=== PATIENT | female | born 1985 | race Caucasian/White ===

== ENCOUNTER 2017-11-25 10:04 | Emergency (ER) | payer OTHER, SELFPAY ==
[2017-11-25 10:13] VITALS: BP 157/94; PULSE 68; RESP 15; TEMP 36.7; O2SAT 100; BMI 22.3
--- NOTE | 2017-11-25 10:13 | ED.CHESTPAIN ---
HPI - Chest Pain General Chief Complaint: Arrhythmia/Palpitations Stated Complaint: SVT Time Seen by Provider: 11/25/17 10:12 Source: patient Mode of arrival: ambulatory Limitations: no limitations History of Present Illness HPI narrative: 32-year-old nonsmoker with history of SVT presents with a chief complaint of palpitations dizziness and chest pain for the past few days. She states she has had a episodes of rapid heart rate over the past few days which go away without any medications or specific therapies. She denies any change in her life such as new medications, additional stressors, or illness involving fever, chills nor nausea or vomiting. She is otherwise well and free of complaint. Her chest pain goes away with resolution of palpitations and tachycardia MD complaint: chest pain Onset (ago): day(s) Duration: intermittent Pain location: substernal Severity: mild Quality: tightness Exacerbating factors: nothing Treatments prior to arrival chest pain: none Related Data Home Medications Medication Instructions Recorded Confirmed No Known Home Medications 11/25/17 11/25/17 Allergies Allergy/AdvReac Type Severity Reaction Status Date / Time hydrocodone Allergy Severe Difficulty Verified 11/25/17 10:57 Breathing Review of Systems Review of Systems All systems reviewed & are unremarkable except as noted in HPI and below Constitutional Denies chills, Denies fever(s), Denies lethargy and Denies weakness Eyes Denies change in vision, Denies eye discharge, Denies irritation and Denies loss of vision ENT Ears, Nose, Mouth, and Throat: Denies change in voice, Denies neck pain and Denies sore throat Cardiovascular Reports chest pain, Reports rapid heart rate, Reports irregular heart rhythm, Denies lightheadedness, Reports palpitations, Reports dyspnea, Denies dyspnea on exertion and Denies orthopnea Respiratory Denies cough, Reports dyspnea, Denies dyspnea on exertion and Denies wheezing Gastrointestinal Gastrointestinal: Denies abdominal pain, Denies change in bowel habits, Denies diarrhea, Denies nausea and Denies vomiting Genitourinary Denies hematuria, Denies flank pain, Denies urinary incontinence and Denies urinary urgency Musculoskeletal Denies neck pain Integumentary/Breasts Denies pruritus, Denies erythema, Denies rash and Denies wounds Neurologic Denies confusion, Denies loss of vision and Denies weakness Psychiatric Denies anxiety, Denies confusion, Denies depression, Denies homicidal ideation and Denies suicidal ideation Endocrine Reports palpitations Hematologic/Lymphatic Denies easy bruising Allergic/Immunologic Denies wheezing [facility] Medical History SVT (supraventricular tachycardia) (Acute) Exam Initial Vital Signs Initial Vital Signs: Vital Signs Temperature 98.0 F 11/25/17 10:13 Pulse Rate 68 11/25/17 10:13 Respiratory Rate 15 11/25/17 10:13 Blood Pressure 157/94 H 11/25/17 10:13 Pulse Oximetry 100 11/25/17 10:13 Const General: cooperative and well developed Nutritional Appearance: well nourished Orientation: alert, awake, oriented x3 and not confused HENMT Head: normocephalic and atraumatic Ears: external ears normal and TM's normal bilaterally Nose: external nose normal and No nasal discharge Face and sinus: sinuses nontender, face symmetric, no sinus tenderness and No dry mucous membranes Mouth: oral mucosae normal and moist mucous membranes Teeth and gingiva: dentition normal Throat: tonsils normal and uvula midline Eyes General: appearance normal, both eyes and all related structures Eyelids: eyelids normal Conjunctivae: conjunctivae normal Sclera: sclerae normal Pupils: PERRL EOM: EOM intact bilaterally Neck Neck: normal visual inspection, trachea midline, No lymphadenopathy, No midline deformity and No JVD Lymphatic: No lymphedema Chest Chest: normal inspection of the chest Resp Effort & Inspection: normal respiratory effort, able to speak in complete sentences, no respiratory distress and no use of accessory muscles Auscultation: clear to auscultation bilaterally, no rales, no rhonchi and no wheezes Cardio Rate: regular rate Rhythm: regular rhythm Heart Sounds: no click, no gallops, no murmurs and no rubs Pulses: normal peripheral pulses GI Inspection: non-distended Palpation: soft, no hepatosplenomegaly, No guarding, No pulsatile mass and No tender Auscultation: normal bowel sounds Back/Spine/Pelvis Back: No CVA tenderness Cervical Spine: cervical ROM normal and No pain with cervical ROM Thoracic/Lumbar Spine: thoracic and lumbar spine normal to inspection Skin General: no rashes or lesions noted, No jaundice and No petechiae Neuro General: alert, oriented x3, gait normal and no focal motor deficits Speech: speech normal Extrem General: full ROM, no clubbing, cyanosis or edema, no pedal edema and no calf tenderness Psych Appearance: well kempt Mental Status: mental status grossly normal Attitude: cooperative Thought Content: normal and suicidality Judgment: judgment good Course Orders Ordered: ED Orders 11/25/17 10:22 XR chest 1V Stat Basic Metabolic Panel Stat Complete Blood Count AUTO DIFF Stat Magnesium Stat Troponin & CK Cardiac Panel Stat EKG-12 Lead Stat Discontinued Medications Sodium Chloride (Normal Saline 0.9%) 1,000 mls @ 150 mls/hr IV CONT TERESA Last Infusion: 11/25/17 12:13 Dose: 0 mls/hr Admin: 11/25/17 11:23 Dose: 150 mls/hr Vital Signs - 8 hr 11/25/17 11:27 11/25/17 11:43 Pulse Rate 58 L 49 L Respiratory Rate 14 14 Blood Pressure [Left Arm] 125/78 132/74 Pulse Oximetry 100 100 MDM - Chest Pain Differential Diagnosis Likely stable angina, unstable angina pectoris, atypical chest pain, st elevation myocardial infarction, costochondritis, chest pain and other Medical Records Data Attestation: I reviewed the patient's medical records. Lab Data Attestation: I reviewed the patient's lab results. Result diagrams: 11/25/17 10:22 11/25/17 10:22 Lab Results 11/25/17 11/25/17 11/25/17 Range/Units 10:22 10:22 Unknown WBC 5.8 (4.5-11.0) X10^3/uL RBC 4.69 (4.0-5.2) X10^6/uL Hgb 13.7 (12.0-16.0) g/dL Hct 39.0 (36-46) % MCV 83.1 (80-100) fL MCH 29.2 (26-34) PG MCHC 35.2 (30-36) % RDW 13.0 (11.6-14.8) % Plt Count 233 (150-400) X10^3/uL Neut % (Auto) 65.1 (50-75) % Lymph % (Auto) 26.3 (25-40) % [place] % (Auto) 6.8 (3-14) % Eos % (Auto) 1.0 L (2-4) % Baso % (Auto) 0.8 (0-2) % Neut # (Auto) 3800 (9835-8949) /uL Sodium 143 (137-145) mmol/L Potassium 3.9 (3.4-5.1) mmol/L Chloride 106 (98-107) mmol/L Carbon Dioxide 24 (22-32) mmol/L BUN 16 (7-17) mg/dL Creatinine 0.70 (0.52-1.04) mg/dL Estimated GFR > 60.0 (>60) mL/min BUN/Creatinine Ratio 22.9 H (6-22) Glucose 91 (70-100) mg/dL Calcium 9.5 (8.4-10.2) mg/dL Magnesium 2.2 (1.6-2.3) mg/dL Total Creatine Kinase 56 (30-135) U/L Troponin I < 0.012 (0.01-0.034) ng/mL TSH 1.85 (0.47-4.68) uIU/mL ECG Data Attestation: I personally reviewed and interpreted this ECG as follows: Prior ECG tracings: not available for review Interpretation: Normal sinus rhythm without signs of ectopy, ischemia. No ST segmental changes. Rate in the upper 50s low 60s Discharge Plan Departure Patient Disposition: Home Clinical Impression: Palpitations Discharge Date/Time: 11/25/17 12:16 Interventions: ED Discharge Assessment Last Done: 11/25/17 12:14 Instructions: DI for Palpitations Activity Restrictions/Additional Instructions: *You have been diagnosed with [ acute palpitations, possible resolution of SVT ] *What to do: * continue to take medications as directed *Follow up with your primary care provider in 2-3 days, call for an appointment. Let them know you were seen in the Emergency Department and that we ask that you be seen in follow up *Return to ER if you should have any new, worsening or concerning symptoms Prescriptions: No Action No Known Home Medications RF: 0
--- NOTE | 2017-11-25 10:22 | DI.RAD.S_ITS ---
PROCEDURE: XR CHEST 1V INDICATIONS: SHORTNESS OF BREATH TECHNIQUE: One view of the chest was acquired. COMPARISON: None. FINDINGS: Surgical changes and devices: None. Lungs and pleura: No pleural effusions or pneumothorax. Lungs are clear. Mediastinum: Mediastinal contours appear normal. Heart size is normal. Bones and chest wall: No suspicious bony lesions. Overlying soft tissues appear unremarkable. IMPRESSION: No acute cardiopulmonary disease process. Dictated by: Anya Jackson MD, PhD on 11/25/2017 at 10:37 Approved by: Anya Jackson MD, PhD on 11/25/2017 at 10:37
--- NOTE | 2017-11-25 10:24 | PC.NURSE ---
Patient states couple episodes of SVT yesterday. Resolved with Vagel maneuver. Max heart rate 190 per patient. Has had history of SVT in past was on sotalol in past. Not on meds currently
[2017-11-25 10:53] LABS: BUN Creatinine Ratio 22.9 (6-22); Blood Urea Nitrogen 16 mg/dL (7-17); Calcium 9.5 mg/dL (8.4-10.2); Carbon Dioxide 24 mmol/L (22-32); Chloride 106 mmol/L (98-107); Creatine Kinase 56 U/L (30-135); Estimated Glomerular Filt Rate > 60.0 mL/min (>60); Glucose 91 mg/dL (70-100); HEMOLYSIS 17 (0-50); Magnesium 2.2 mg/dL (1.6-2.3); Potassium 3.9 mmol/L (3.4-5.1); Sodium 143 mmol/L (137-145)
[2017-11-25 11:00] LABS: Add Manual Diff / Slide Review NO; Basophils Percent Auto 0.8 % (0-2); Hemoglobin 13.7 g/dL (12.0-16.0); Lymphocytes Percent Auto 26.3 % (25-40); Mean Corpuscular HGB Conc 35.2 % (30-36); Mean Corpuscular Hemoglobin 29.2 PG (26-34); Mean Corpuscular Volume 83.1 fL (80-100); Monocytes Percent Auto 6.8 % (3-14); Neutrophils Absolute Auto 3800 /uL (3000-5900); Neutrophils Percent Auto 65.1 % (50-75); Platelet Count 233 X10^3/uL (150-400); Red Blood Cell Count 4.69 X10^6/uL (4.0-5.2); White Blood Cell Count 5.8 X10^3/uL (4.5-11.0)
[2017-11-25 11:06] LABS: Troponin I < 0.012 ng/mL (0.01-0.034)
[2017-11-25] MEDS: SODIUM CHLORIDE 0.9% 1,000 ML 150 ML IV (11:23)
[2017-11-25 11:27] VITALS: BP 125/78; PULSE 58; RESP 14; O2SAT 100
[2017-11-25 11:43] VITALS: BP 132/74; PULSE 49; RESP 14; O2SAT 100
[2017-11-25 11:48] LABS: Thyroid Stimulating Hormone 1.85 uIU/mL (0.47-4.68)
== END 2017-11-25 12:16 | disposition home or self-care (01) ==
PROVIDERS: Emergency Provider Emergency Medicine
DX: R00.2 Palpitations (principal)
CPT/HCPCS: 36591; 71045; 80048; 82550; 82553; 83735; 84443; 84484; 85025; 93005; 96360; 99283; 99285

== ENCOUNTER 2017-12-05 22:14 | Emergency (ER) | payer OTHER, SELFPAY ==
[2017-12-05 22:27] VITALS: BP 137/66; PULSE 94; RESP 16; TEMP 36.6; O2SAT 100; BMI 22.3
--- NOTE | 2017-12-05 22:31 | DI.RAD.S_ITS ---
PROCEDURE: XR CHEST 1V INDICATIONS: chest pain TECHNIQUE: One view of the chest was acquired. COMPARISON: [facility], CR, XR CHEST 1V, 11/25/2017, 10:26. FINDINGS: Surgical changes and devices: None. Lungs and pleura: No pleural effusions or pneumothorax. Lungs are clear. Mediastinum: Mediastinal contours appear normal. Heart size is normal. Bones and chest wall: No suspicious bony lesions. Overlying soft tissues appear unremarkable. IMPRESSION: No acute cardiopulmonary disease. Dictated by: Marcelo Colon M.D. on 12/06/2017 at 8:22 Approved by: Marcelo Colon M.D. on 12/06/2017 at 8:22
[2017-12-05 22:40] LABS: Add Manual Diff / Slide Review NO; Eosinophils Percent Auto 1.8 % (2-4); Hematocrit 38.6 % (36-46); Hemoglobin 13.6 g/dL (12.0-16.0); Mean Corpuscular HGB Conc 35.2 % (30-36); Mean Corpuscular Volume 82.6 fL (80-100); Monocytes Percent Auto 7.5 % (3-14); Neutrophils Absolute Auto 5700 /uL (3000-5900); Neutrophils Percent Auto 69.7 % (50-75); Platelet Count 228 X10^3/uL (150-400); Red Blood Cell Count 4.67 X10^6/uL (4.0-5.2); Red Cell Distribution Width 12.7 % (11.6-14.8); White Blood Cell Count 8.2 X10^3/uL (4.5-11.0)
[2017-12-05 22:49] LABS: PTT Partial Thromboplastin Tim 32 SECONDS (26.4-36.2); Prothrombin Time 11.3 SECONDS (10.1-12.7)
[2017-12-05 22:52] LABS: Alanine Aminotransferase 20 IU/L (9-52); Albumin 4.9 g/dL (3.5-5.0); Albumin Globulin Ratio 1.8 (1.0-2.8); Alkaline Phosphatase 43 U/L (38-126); Aspartate Aminotransferase 18 IU/L (14-36); BUN Creatinine Ratio 27.5 (6-22); Bilirubin Total 0.5 mg/dL (0.2-1.3); Blood Urea Nitrogen 22 mg/dL (7-17); Calcium 9.8 mg/dL (8.4-10.2); Carbon Dioxide 25 mmol/L (22-32); Chloride 105 mmol/L (98-107); Creatine Kinase 59 U/L (30-135); Estimated Glomerular Filt Rate > 60.0 mL/min (>60); Globulin 2.8 g/dL (1.7-4.1); Glucose 115 mg/dL (70-100); HEMOLYSIS < 15 (0-50); Lipase 131 U/L (23-300); Potassium 3.5 mmol/L (3.4-5.1); Sodium 144 mmol/L (137-145); Total Protein 7.7 g/dL (6.3-8.2)
[2017-12-05 23:06] LABS: Troponin I < 0.012 ng/mL (0.01-0.034)
--- NOTE | 2017-12-05 23:09 | ED.ARRPALP ---
HPI - Arrhythmia/Palpitations General Chief Complaint: Arrhythmia/Palpitations Stated Complaint: Low Heart Rate Time Seen by Provider: 12/05/17 22:49 Source: patient Mode of arrival: ambulatory Limitations: no limitations History of Present Illness HPI narrative: This is a 32-year-old female comes to the emergency department with complaint of SVT. Patient states she was diagnosed about 10 years ago. She has had symptoms intermittently. She takes sotalol but only as a as needed medication not every day. patient had symptoms this evening for about 2 hr with elevated heart rate. She felt sort of short of breath and has chest pain. She felt nauseated but no vomiting. Patient's heart rate on arrival was very slightly elevated and with time improved. Patient has not had any diarrhea or constipation, no signs of dehydration. We discussed that she should continue her medications but if she is having severe symptoms like she described to come in sooner to the emergency department. Related Data Home Medications Medication Instructions Recorded Confirmed No Known Home Medications 11/25/17 11/25/17 Allergies Allergy/AdvReac Type Severity Reaction Status Date / Time hydrocodone Allergy Severe Difficulty Verified 11/25/17 10:57 Breathing Review of Systems Review of Systems All systems reviewed & are unremarkable except as noted in HPI and below PFS Social History Smoking Status: Never smoker Exam Narrative Exam Narrative: GENERAL: Alert and oriented x three, Patient is in mild distress. HEENT: Head normocephalic, atraumatic, EOMI, pupils reactive, face symmetric, moist mucous membranes NECK: Supple, full range of motion CARDIOVASCULAR: Regular rate and rhythm without murmurs, rubs or gallops. RESPIRATORY: Breath sounds equal bilaterally, no wheezes rales or rhonchi. ABDOMEN: Soft, nontender. Normoactive bowel sounds all 4 quadrants. No guarding or rebound, rigidity, no mass : No CVA tenderness EXTREMITIES: Normal range of motion, no clubbing or edema. Neurovascularly intact. 2+ pulses bilateral lower extremities. No edema bilateral lower extremities. NEUROLOGICAL: Cranial nerves II through XII grossly intact. Moving all extremities SKIN: Warm, dry, no petechiae, no rashes or lesions. Initial Vital Signs Initial Vital Signs: Vital Signs Temperature 98 F 12/05/17 22:27 Pulse Rate 94 H 12/05/17 22:27 Respiratory Rate 16 09/27/18 22:27 Blood Pressure 137/66 12/05/17 22:27 Pulse Oximetry 100 12/05/17 22:27 Course Orders Ordered: ED Orders 12/05/17 22:28 Complete Blood Count AUTO DIFF Stat Comprehensive Metabolic Panel Stat Lipase Stat Magnesium Stat Partial Thromboplastin Time Stat Prothrombin Time INR Stat Thyroid Stimulating Hormone Stat Troponin & CK Cardiac Panel Stat 12/05/17 22:31 XR chest 1V Stat 12/05/17 22:32 EKG-12 Lead Stat Discontinued Medications Sodium Chloride (Normal Saline 0.9%) 1,000 mls @ 1,000 mls/hr IV BOLUS ONE Stop: 12/06/17 00:06 Last Infusion: 12/06/17 00:41 Dose: 0 mls/hr Admin: 12/05/17 23:10 Dose: 1,000 mls/hr Ondansetron HCl (Zofran) 4 mg IV NOW ONE Stop: 12/05/17 23:08 Last Admin: 12/05/17 23:10 Dose: 4 mg Reevaluation(s) Reevaluation #1: recheck after fluids and zofran Time: 00:31 Vital Signs - 8 hr 12/05/17 22:27 12/05/17 23:16 12/06/17 00:46 Temperature 98 F Pulse Rate 94 H 53 L 75 Respiratory Rate 16 19 Blood Pressure 137/66 Blood Pressure [Left Arm] 115/55 L 105/94 H Pulse Oximetry 100 98 100 MDM - Arrhythmia/Palpitations Lab Data Result diagrams: 12/05/17 22:28 12/05/17 22:28 Lab Results 12/05/17 12/05/17 12/05/17 Range/Units 22:28 22:28 22:28 WBC 8.2 (4.5-11.0) X10^3/uL RBC 4.67 (4.0-5.2) X10^6/uL Hgb 13.6 (12.0-16.0) g/dL Hct 38.6 (36-46) % MCV 82.6 (80-100) fL MCH 29.0 (26-34) PG MCHC 35.2 (30-36) % RDW 12.7 (11.6-14.8) % Plt Count 228 (150-400) X10^3/uL Neut % (Auto) 69.7 (50-75) % Lymph % (Auto) 20.0 L (25-40) % [place] % (Auto) 7.5 (3-14) % Eos % (Auto) 1.8 L (2-4) % Baso % (Auto) 1.0 (0-2) % Neut # (Auto) 5700 (1084-0649) /uL PT 11.3 (10.1-12.7) SECONDS INR 1.0 (0.9-1.3) APTT 32 (26.4-36.2) SECONDS Sodium 144 (137-145) mmol/L Potassium 3.5 (3.4-5.1) mmol/L Chloride 105 (98-107) mmol/L Carbon Dioxide 25 (22-32) mmol/L BUN 22 H (7-17) mg/dL Creatinine 0.80 (0.52-1.04) mg/dL Estimated GFR > 60.0 (>60) mL/min BUN/Creatinine Ratio 27.5 H (6-22) Glucose 115 H (70-100) mg/dL Calcium 9.8 (8.4-10.2) mg/dL Magnesium (1.6-2.3) mg/dL Total Bilirubin 0.5 (0.2-1.3) mg/dL AST 18 (14-36) IU/L ALT 20 (9-52) IU/L Alkaline Phosphatase 43 (38-126) U/L Total Creatine Kinase 59 (30-135) U/L CK-MB (CK-2) TNP CK-MB (CK-2) Rel Index TNP Troponin I < 0.012 (0.01-0.034) ng/mL Total Protein 7.7 (6.3-8.2) g/dL Albumin 4.9 (3.5-5.0) g/dL Globulin 2.8 (1.7-4.1) g/dL Albumin/Globulin Ratio 1.8 (1.0-2.8) Lipase 131 (23-300) U/L TSH (0.47-4.68) uIU/mL Specimen Hemolysis 12/05/17 12/05/17 Range/Units 22:28 22:28 WBC (4.5-11.0) X10^3/uL RBC (4.0-5.2) X10^6/uL Hgb (12.0-16.0) g/dL Hct (36-46) % MCV (80-100) fL MCH (26-34) PG MCHC (30-36) % RDW (11.6-14.8) % Plt Count (150-400) X10^3/uL Neut % (Auto) (50-75) % Lymph % (Auto) (25-40) % [place] % (Auto) (3-14) % Eos % (Auto) (2-4) % Baso % (Auto) (0-2) % Neut # (Auto) (5057-9032) /uL PT (10.1-12.7) SECONDS INR (0.9-1.3) APTT (26.4-36.2) SECONDS Sodium Cancelled (137-145) mmol/L Potassium Cancelled (3.4-5.1) mmol/L Chloride Cancelled (98-107) mmol/L Carbon Dioxide Cancelled (22-32) mmol/L BUN Cancelled (7-17) mg/dL Creatinine Cancelled (0.52-1.04) mg/dL Estimated GFR Cancelled (>60) mL/min BUN/Creatinine Ratio Cancelled (6-22) Glucose Cancelled (70-100) mg/dL Calcium Cancelled (8.4-10.2) mg/dL Magnesium 2.1 (1.6-2.3) mg/dL Total Bilirubin Cancelled (0.2-1.3) mg/dL AST Cancelled (14-36) IU/L ALT Cancelled (9-52) IU/L Alkaline Phosphatase Cancelled (38-126) U/L Total Creatine Kinase Cancelled (30-135) U/L CK-MB (CK-2) Cancelled CK-MB (CK-2) Rel Index Cancelled Troponin I Cancelled (0.01-0.034) ng/mL Total Protein Cancelled (6.3-8.2) g/dL Albumin Cancelled (3.5-5.0) g/dL Globulin Cancelled (1.7-4.1) g/dL Albumin/Globulin Ratio Cancelled (1.0-2.8) Lipase Cancelled (23-300) U/L TSH 3.55 D (0.47-4.68) uIU/mL Specimen Hemolysis Cancelled Discharge Plan Departure Patient Disposition: Home Clinical Impression: Palpitations, Hx of supraventricular tachycardia Discharge Date/Time: 12/06/17 00:51 Interventions: ED Discharge Assessment Last Done: 12/06/17 00:51 Instructions: Paroxysmal Supraventricular Tachycardia Activity Restrictions/Additional Instructions: Call tomorrow morning to set up a follow-up appointment with Dr. García from Cardiology if you do not already have one scheduled. Continue sotalol as prescribed. If recurrence of symptoms and does not resolve after 20 minutes or you are having Lightheadedness, shortness of breath, chest pain or worsening or new concerning symptoms return to the emergency department. Prescriptions: No Action No Known Home Medications RF: 0 Referrals: Vero García MD [Physician] - Jamey Damon [Non-Staff] -
[2017-12-05] MEDS: ONDANSETRON 4 MG/2 ML INJ IV (23:10)
[2017-12-05] MEDS: SODIUM CHLORIDE 0.9% 1,000 ML 1000 ML IV (23:10)
[2017-12-05 23:16] VITALS: BP 115/55; PULSE 53; RESP 19; O2SAT 98
[2017-12-05 23:39] LABS: Magnesium 2.1 mg/dL (1.6-2.3)
[2017-12-06 00:15] LABS: Thyroid Stimulating Hormone 3.55 uIU/mL (0.47-4.68)
[2017-12-06 00:46] VITALS: BP 105/94; PULSE 75; O2SAT 100
== END 2017-12-06 00:51 | disposition home or self-care (01) ==
PROVIDERS: Emergency Provider Emergency Medicine
DX: R00.2 Palpitations (principal); Z86.79 Personal history of other diseases of the circulatory system
CPT/HCPCS: 36591; 71045; 80053; 82550; 83690; 83735; 84443; 84484; 85025; 85610; 85730; 93005; 96361; 96374; 99283; 99285; J2405

== ENCOUNTER 2018-08-18 11:02 | Emergency (ER) | payer OTHER, SELFPAY ==
[2018-08-18] VITALS (8 sets, daily range): BP systolic 107–126; BP diastolic 63–80; PULSE 61–98; RESP 16–18; TEMP 37.2; O2SAT 98–100; BMI 22.3
--- NOTE | 2018-08-18 11:09 | ED.NAVMDI ---
HPI - Nausea/Vomiting/Diarrhea <Carol Medina PA-C - Last Filed: 08/18/18 20:46> General Chief complaint: Abdominal Pain Stated complaint: Food poisoning Time Seen by Provider: 08/18/18 11:08 Source: patient Mode of arrival: ambulatory Limitations: no limitations History of Present Illness HPI Narrative: This 33-year-old female comes in due to concern for ?food poisoning?. She states that she has been vomiting consistently since 9:00 p.m. last night, probably about every 1/2 hours, now orangish/brown liquid. She states that she has not kept down any food or fluids since then. She denies diarrhea. She states that she has some upper abdominal pain which is worse when she is close to throwing up, gets a little bit better afterwards. She ate the same food as her family yesterday and no others were ill, however Saturday she did go to a baseball game and had chicken salad when the others ate something different. She cannot think of any other exposures or different foods. No recent travel. She states that she felt warm and sweaty this morning, no temperature is taken. She has not had any diarrhea. She denies any urinary symptoms or hematuria. She denies any recent illness or other new symptoms. Denies possibility of Related Data Home Medications Medication Instructions Recorded Confirmed diltiazem HCl 120 mg PO DAILY 08/18/18 08/18/18 metoprolol tartrate 25 mg PO DAILY PRN 08/18/18 08/18/18 Previous Rx's Medication Instructions Recorded ondansetron 4 mg PO DAILY PRN #8 tab 08/18/18 Allergies Allergy/AdvReac Type Severity Reaction Status Date / Time hydrocodone Allergy Severe Difficulty Verified 08/18/18 11:06 Breathing Review of Systems <Carol Medina PA-C - Last Filed: 08/18/18 20:46> Review of Systems ROS Unobtainable: All systems reviewed & are unremarkable except as noted in HPI and below PFSH <Carol Medina PA-C - Last Filed: 08/18/18 20:46> Medical History (Updated 08/18/18 @ 15:17 by Carol Medina PA-C) AV node dysfunction (Chronic) Status post tubal ligation (Resolved) Surgical History (Updated 08/18/18 @ 11:26 by Carol Medina PA-C) History of radiofrequency ablation procedure for cardiac arrhythmia (Resolved) Status post (Resolved) Social History Smoking Status: Never smoker Social History Smoking Status: Never smoker Exam <Carol Mdeina PA-C - Last Filed: 08/18/18 20:46> Narrative Exam Narrative: GENERAL APPEARANCE: Patient sitting comfortably, in no distress. HEENT: PERRL, EOMI, no scleral icterus, conjunctivae pink NECK: Supple LUNGS: Clear to auscultation bilaterally. HEART: Rate and rhythm regular, normal S1 and S2, no S3 or S4. ABDOMEN: Soft, nondistended, bowel sounds present x 4 quadrants, no masses palpable, no hepatosplenomegaly. Generalized epigastric tenderness without guarding or rebound, no CVAT EXTREMITIES: No edema, no cyanosis DERMATOLOGIC: No jaundice or exanthem NEUROLOGIC: Alert and oriented with normal speech and coordination Initial Vital Signs Initial Vital Signs: Vital Signs Temperature 99.0 F 08/18/18 11:06 <Karla Simpson DO - Last Filed: 08/19/18 10:11> Initial Vital Signs Initial Vital Signs: Vital Signs Temperature 99.0 F 08/18/18 11:06 Course <Carol Medina PA-C - Last Filed: 08/18/18 20:46> Additional Information: Patient is feeling markedly improved at the time of discharge, has not had any recurrent vomiting, tolerating oral fluids. She agrees to return if any acutely worsening symptoms again or new symptoms such as fever. Orders Ordered: Discontinued Medications Sodium Chloride (Normal Saline 0.9%) 1,000 mls @ 1,000 mls/hr IV BOLUS ONE Stop: 08/18/18 12:10 Last Infusion: 08/18/18 12:24 Dose: 0 mls/hr Admin: 08/18/18 11:31 Dose: 1,000 mls/hr Sodium Chloride (Normal Saline 0.9%) 1,000 mls @ 1,000 mls/hr IV BOLUS ONE Stop: 08/18/18 12:20 Last Infusion: 08/18/18 13:55 Dose: 0 mls/hr Admin: 08/18/18 12:27 Dose: 1,000 mls/hr Ketorolac Tromethamine (Toradol) 30 mg IV NOW ONE Stop: 08/18/18 13:38 Last Admin: 08/18/18 14:10 Dose: 30 mg Ondansetron HCl (Zofran) 4 mg IV NOW ONE Stop: 08/18/18 11:11 Last Admin: 08/18/18 11:31 Dose: 4 mg Pantoprazole Sodium (Protonix) 40 mg IV NOW ONE Stop: 08/18/18 11:18 Last Admin: 08/18/18 11:31 Dose: 40 mg Prochlorperazine (Compazine) 10 mg IV NOW ONE Stop: 08/18/18 13:38 Last Admin: 08/18/18 14:10 Dose: 10 mg Vital Signs - 8 hr 08/18/18 13:15 08/18/18 14:10 08/18/18 14:26 Pulse Rate 80 78 61 Respiratory Rate 16 Blood Pressure 116/78 Blood Pressure [Right Arm] 107/65 109/66 Pulse Oximetry 100 98 08/18/18 15:46 Pulse Rate 70 Respiratory Rate 18 Blood Pressure Blood Pressure [Right Arm] 112/78 Pulse Oximetry 100 <Karla Simpson DO - Last Filed: 08/19/18 10:11> Orders Ordered: Discontinued Medications Sodium Chloride (Normal Saline 0.9%) 1,000 mls @ 1,000 mls/hr IV BOLUS ONE Stop: 08/18/18 12:10 Last Infusion: 08/18/18 12:24 Dose: 0 mls/hr Admin: 08/18/18 11:31 Dose: 1,000 mls/hr Sodium Chloride (Normal Saline 0.9%) 1,000 mls @ 1,000 mls/hr IV BOLUS ONE Stop: 08/18/18 12:20 Last Infusion: 08/18/18 13:55 Dose: 0 mls/hr Admin: 08/18/18 12:27 Dose: 1,000 mls/hr Ketorolac Tromethamine (Toradol) 30 mg IV NOW ONE Stop: 08/18/18 13:38 Last Admin: 08/18/18 14:10 Dose: 30 mg Ondansetron HCl (Zofran) 4 mg IV NOW ONE Stop: 08/18/18 11:11 Last Admin: 08/18/18 11:31 Dose: 4 mg Pantoprazole Sodium (Protonix) 40 mg IV NOW ONE Stop: 08/18/18 11:18 Last Admin: 08/18/18 11:31 Dose: 40 mg Prochlorperazine (Compazine) 10 mg IV NOW ONE Stop: 08/18/18 13:38 Last Admin: 08/18/18 14:10 Dose: 10 mg Vital Signs - 8 hr 08/18/18 13:15 08/18/18 14:10 08/18/18 14:26 Pulse Rate 80 78 61 Respiratory Rate 16 Blood Pressure 116/78 Blood Pressure [Right Arm] 107/65 109/66 Pulse Oximetry 100 98 08/18/18 15:46 Pulse Rate 70 Respiratory Rate 18 Blood Pressure Blood Pressure [Right Arm] 112/78 Pulse Oximetry 100 MDM - Nausea/Vomiting/Diarrhea <Carol Medina PA-C - Last Filed: 08/18/18 20:46> Lab Data Result diagrams: 08/18/18 11:20 08/18/18 11:20 Lab Results 08/18/18 08/18/18 08/18/18 Range/Units 11:20 11:20 11:20 WBC 10.6 (4.5-11.0) X10^3/uL RBC 5.13 (4.0-5.2) X10^6/uL Hgb 14.9 (12.0-16.0) g/dL Hct 42.9 (36-46) % MCV 83.7 (80-100) fL MCH 29.1 (26-34) PG MCHC 34.8 (30-36) % RDW 12.7 (11.6-14.8) % Plt Count 238 (150-400) X10^3/uL Neut % (Auto) 93.8 H (50-75) % Lymph % (Auto) 2.7 L (25-40) % [place] % (Auto) 2.9 L (3-14) % Eos % (Auto) 0.2 L (2-4) % Baso % (Auto) 0.4 (0-2) % Neut # (Auto) 9900 H (2998-4946) /uL Lymph # (Auto) 300 L (8540-2057) /uL [place] # (Auto) 300 (0-900) /uL Eos # (Auto) 0 (0-450) /uL Baso # (Auto) 0 (0-100) /uL PT 12.9 H (10.1-12.7) SECONDS INR 1.1 (0.9-1.3) APTT 31 (26.4-36.2) SECONDS Sodium 139 (137-145) mmol/L Potassium 3.5 (3.4-5.1) mmol/L Chloride 101 (98-107) mmol/L Carbon Dioxide 27 (22-32) mmol/L BUN 20 H (7-17) mg/dL Creatinine 0.70 (0.52-1.04) mg/dL Estimated GFR > 60.0 (>60) mL/min BUN/Creatinine Ratio 28.6 H (6-22) Glucose 117 H (70-100) mg/dL Calcium 9.7 (8.4-10.2) mg/dL Total Bilirubin 1.4 H (0.2-1.3) mg/dL AST 21 (14-36) IU/L ALT 21 (9-52) IU/L Alkaline Phosphatase 68 (38-126) U/L Total Protein 8.7 H (6.3-8.2) g/dL Albumin 5.1 H (3.5-5.0) g/dL Globulin 3.6 (1.7-4.1) g/dL Albumin/Globulin Ratio 1.4 (1.0-2.8) Lipase 96 (23-300) U/L Urine RBC (0-5/HPF) Urine WBC (0-5/HPF) Ur Squamous Epith Cells (0-5/HPF) Urine Bacteria (None) Ur Culture Indicated? 08/18/18 Range/Units 14:25 WBC (4.5-11.0) X10^3/uL RBC (4.0-5.2) X10^6/uL Hgb (12.0-16.0) g/dL Hct (36-46) % MCV (80-100) fL MCH (26-34) PG MCHC (30-36) % RDW (11.6-14.8) % Plt Count (150-400) X10^3/uL Neut % (Auto) (50-75) % Lymph % (Auto) (25-40) % [place] % (Auto) (3-14) % Eos % (Auto) (2-4) % Baso % (Auto) (0-2) % Neut # (Auto) (9851-0478) /uL Lymph # (Auto) (9288-0220) /uL [place] # (Auto) (0-900) /uL Eos # (Auto) (0-450) /uL Baso # (Auto) (0-100) /uL PT (10.1-12.7) SECONDS INR (0.9-1.3) APTT (26.4-36.2) SECONDS Sodium (137-145) mmol/L Potassium (3.4-5.1) mmol/L Chloride (98-107) mmol/L Carbon Dioxide (22-32) mmol/L BUN (7-17) mg/dL Creatinine (0.52-1.04) mg/dL Estimated GFR (>60) mL/min BUN/Creatinine Ratio (6-22) Glucose (70-100) mg/dL Calcium (8.4-10.2) mg/dL Total Bilirubin (0.2-1.3) mg/dL AST (14-36) IU/L ALT (9-52) IU/L Alkaline Phosphatase (38-126) U/L Total Protein (6.3-8.2) g/dL Albumin (3.5-5.0) g/dL Globulin (1.7-4.1) g/dL Albumin/Globulin Ratio (1.0-2.8) Lipase (23-300) U/L Urine RBC None seen (0-5/HPF) Urine WBC 5-10/hpf H (0-5/HPF) Ur Squamous Epith Cells 10-30 /hpf H (0-5/HPF) Urine Bacteria None seen (None) Ur Culture Indicated? Cult not indicated Point of Care Testing Test Results Negative Urine Dip Bedside Urine Glucose Negative Bedside Urine Bilirubin + 1 Bedside Urine Ketone +++ 80 Urine Specific [place] 1.015 Bedside Urine Occult Blood - Negative Bedside Urine pH 8.0 Bedside Urine Protein +/- 15 Bedside Urine Urobilinogen +/- 1mg Bedside Urine Nitrite - Negative Bedside Urine Leukocytes ++ 125 Esterase <Karla Simpson DO - Last Filed: 08/19/18 10:11> Lab Data Lab Results 08/18/18 08/18/18 08/18/18 Range/Units 11:20 11:20 11:20 WBC 10.6 (4.5-11.0) X10^3/uL RBC 5.13 (4.0-5.2) X10^6/uL Hgb 14.9 (12.0-16.0) g/dL Hct 42.9 (36-46) % MCV 83.7 (80-100) fL MCH 29.1 (26-34) PG MCHC 34.8 (30-36) % RDW 12.7 (11.6-14.8) % Plt Count 238 (150-400) X10^3/uL Neut % (Auto) 93.8 H (50-75) % Lymph % (Auto) 2.7 L (25-40) % [place] % (Auto) 2.9 L (3-14) % Eos % (Auto) 0.2 L (2-4) % Baso % (Auto) 0.4 (0-2) % Neut # (Auto) 9900 H (1959-3537) /uL Lymph # (Auto) 300 L (8809-5698) /uL [place] # (Auto) 300 (0-900) /uL Eos # (Auto) 0 (0-450) /uL Baso # (Auto) 0 (0-100) /uL PT 12.9 H (10.1-12.7) SECONDS INR 1.1 (0.9-1.3) APTT 31 (26.4-36.2) SECONDS Sodium 139 (137-145) mmol/L Potassium 3.5 (3.4-5.1) mmol/L Chloride 101 (98-107) mmol/L Carbon Dioxide 27 (22-32) mmol/L BUN 20 H (7-17) mg/dL Creatinine 0.70 (0.52-1.04) mg/dL Estimated GFR > 60.0 (>60) mL/min BUN/Creatinine Ratio 28.6 H (6-22) Glucose 117 H (70-100) mg/dL Calcium 9.7 (8.4-10.2) mg/dL Total Bilirubin 1.4 H (0.2-1.3) mg/dL AST 21 (14-36) IU/L ALT 21 (9-52) IU/L Alkaline Phosphatase 68 (38-126) U/L Total Protein 8.7 H (6.3-8.2) g/dL Albumin 5.1 H (3.5-5.0) g/dL Globulin 3.6 (1.7-4.1) g/dL Albumin/Globulin Ratio 1.4 (1.0-2.8) Lipase 96 (23-300) U/L Urine RBC (0-5/HPF) Urine WBC (0-5/HPF) Ur Squamous Epith Cells (0-5/HPF) Urine Bacteria (None) Ur Culture Indicated? 08/18/18 Range/Units 14:25 WBC (4.5-11.0) X10^3/uL RBC (4.0-5.2) X10^6/uL Hgb (12.0-16.0) g/dL Hct (36-46) % MCV (80-100) fL MCH (26-34) PG MCHC (30-36) % RDW (11.6-14.8) % Plt Count (150-400) X10^3/uL Neut % (Auto) (50-75) % Lymph % (Auto) (25-40) % [place] % (Auto) (3-14) % Eos % (Auto) (2-4) % Baso % (Auto) (0-2) % Neut # (Auto) (6619-8568) /uL Lymph # (Auto) (3803-5017) /uL [place] # (Auto) (0-900) /uL Eos # (Auto) (0-450) /uL Baso # (Auto) (0-100) /uL PT (10.1-12.7) SECONDS INR (0.9-1.3) APTT (26.4-36.2) SECONDS Sodium (137-145) mmol/L Potassium (3.4-5.1) mmol/L Chloride (98-107) mmol/L Carbon Dioxide (22-32) mmol/L BUN (7-17) mg/dL Creatinine (0.52-1.04) mg/dL Estimated GFR (>60) mL/min BUN/Creatinine Ratio (6-22) Glucose (70-100) mg/dL Calcium (8.4-10.2) mg/dL Total Bilirubin (0.2-1.3) mg/dL AST (14-36) IU/L ALT (9-52) IU/L Alkaline Phosphatase (38-126) U/L Total Protein (6.3-8.2) g/dL Albumin (3.5-5.0) g/dL Globulin (1.7-4.1) g/dL Albumin/Globulin Ratio (1.0-2.8) Lipase (23-300) U/L Urine RBC None seen (0-5/HPF) Urine WBC 5-10/hpf H (0-5/HPF) Ur Squamous Epith Cells 10-30 /hpf H (0-5/HPF) Urine Bacteria None seen (None) Ur Culture Indicated? Cult not indicated Point of Care Testing Test Results Negative Urine Dip Bedside Urine Glucose Negative Bedside Urine Bilirubin + 1 Bedside Urine Ketone +++ 80 Urine Specific [place] 1.015 Bedside Urine Occult Blood - Negative Bedside Urine pH 8.0 Bedside Urine Protein +/- 15 Bedside Urine Urobilinogen +/- 1mg Bedside Urine Nitrite - Negative Bedside Urine Leukocytes ++ 125 Esterase Discharge Plan Departure Patient Disposition: Home Clinical Impression: Dehydration Gastritis Qualifiers: Gastritis type: unspecified gastritis Chronicity: acute Gastritis bleeding: without bleeding Qualified Code(s): K29.00 - Acute gastritis without bleeding Vomiting Qualifiers: Vomiting type: unspecified Vomiting Intractability: non-intractable Nausea presence: with nausea Qualified Code(s): R11.2 - Nausea with vomiting, unspecified Discharge Date/Time: 08/18/18 15:48 Interventions: ED Discharge Assessment Last Done: 08/18/18 15:47 Instructions: DI for Dehydration -- Adult, DI for Gastritis, DI for Vomiting -- Adult Activity Restrictions/Additional Instructions: I think your prolonged vomiting caused you to become dehydrated today. Since you are feeling better, you can return home to rest. Please continue drinking plenty of clear fluids today. You can try a few saltines, applesauce, or some white rice or banana if you feel hungry later, but try small amounts of food at a time and keep it very bland. Continue these foods tomorrow and you can slowly advance your diet as you feel better. Please follow-up with your PCP if you are not feeling completely better in the next couple of days. You should return to the emergency department as we talked about if you are feeling acutely worse again. I have sent a prescription for nausea medicine in to [facility] for you in [place]. Prescriptions: New ondansetron 4 mg tablet,disintegrating 4 mg PO DAILY PRN (Reason: nausea and vomiting) Qty: 8 RF: 0 No Action diltiazem HCl 120 mg Capsule,Extended Release 24 Hr 120 mg PO DAILY RF: 0 metoprolol tartrate 25 mg Tablet 25 mg PO DAILY PRN (Reason: as directed) RF: 0 Referrals: [email or web address] [Provider Group] <Karla Simpson DO - Last Filed: 08/19/18 10:11> Cosign ED Attending Cosignature Attestation: I was immediately available in the department for consultation. This documentation has been reviewed and I agree with assessment and plan. Supervised by Karla Simpson DO
--- NOTE | 2018-08-18 11:26 | ED_ITS ---
HPI - Nausea/Vomiting/Diarrhea <Carol Medina PA-C - Last Filed: 08/18/18 20:46> General Chief complaint: Abdominal Pain Stated complaint: Food poisoning Time Seen by Provider: 08/18/18 11:08 Source: patient Mode of arrival: ambulatory Limitations: no limitations History of Present Illness HPI Narrative: This 33-year-old female comes in due to concern for ?food poisoning?. She states that she has been vomiting consistently since 9:00 p.m. last night, probably about every 1/2 hours, now orangish/brown liquid. She states that she has not kept down any food or fluids since then. She denies diarrhea. She states that she has some upper abdominal pain which is worse when she is close to throwing up, gets a little bit better afterwards. She ate the same food as her family yesterday and no others were ill, however Saturday she did go to a baseball game and had chicken salad when the others ate something different. She cannot think of any other exposures or different foods. No recent travel. She states that she felt warm and sweaty this morning, no temperature is taken. She has not had any diarrhea. She denies any urinary symptoms or hematuria. She denies any recent illness or other new symptoms. Denies possibility of Related Data Home Medications Medication Instructions Recorded Confirmed diltiazem HCl 120 mg PO DAILY 08/18/18 08/18/18 metoprolol tartrate 25 mg PO DAILY PRN 08/18/18 08/18/18 Previous Rx's Medication Instructions Recorded ondansetron 4 mg PO DAILY PRN #8 tab 08/18/18 Allergies Allergy/AdvReac Type Severity Reaction Status Date / Time hydrocodone Allergy Severe Difficulty Verified 08/18/18 11:06 Breathing Review of Systems <Carol Medina PA-C - Last Filed: 08/18/18 20:46> Review of Systems ROS Unobtainable: All systems reviewed & are unremarkable except as noted in HPI and below PFSH <Carol Medina PA-C - Last Filed: 08/18/18 20:46> Medical History (Updated 08/18/18 @ 15:17 by Carol Medina PA-C) AV node dysfunction (Chronic) Status post tubal ligation (Resolved) Surgical History (Updated 08/18/18 @ 11:26 by Carol Medina PA-C) History of radiofrequency ablation procedure for cardiac arrhythmia (Resolved) Status post (Resolved) Social History Smoking Status: Never smoker Social History Smoking Status: Never smoker Exam <Carol Medina PA-C - Last Filed: 08/18/18 20:46> Narrative Exam Narrative: GENERAL APPEARANCE: Patient sitting comfortably, in no distress. HEENT: PERRL, EOMI, no scleral icterus, conjunctivae pink NECK: Supple LUNGS: Clear to auscultation bilaterally. HEART: Rate and rhythm regular, normal S1 and S2, no S3 or S4. ABDOMEN: Soft, nondistended, bowel sounds present x 4 quadrants, no masses palpable, no hepatosplenomegaly. Generalized epigastric tenderness without guarding or rebound, no CVAT EXTREMITIES: No edema, no cyanosis DERMATOLOGIC: No jaundice or exanthem NEUROLOGIC: Alert and oriented with normal speech and coordination Initial Vital Signs Initial Vital Signs: Vital Signs Temperature 99.0 F 08/18/18 11:06 <Krala Simpson DO - Last Filed: 08/19/18 10:11> Initial Vital Signs Initial Vital Signs: Vital Signs Temperature 99.0 F 08/18/18 11:06 Course <Carol Medina PA-C - Last Filed: 08/18/18 20:46> Additional Information: Patient is feeling markedly improved at the time of discharge, has not had any recurrent vomiting, tolerating oral fluids. She agrees to return if any acutely worsening symptoms again or new symptoms such as fever. Orders Ordered: Discontinued Medications Sodium Chloride (Normal Saline 0.9%) 1,000 mls @ 1,000 mls/hr IV BOLUS ONE Stop: 08/18/18 12:10 Last Infusion: 08/18/18 12:24 Dose: 0 mls/hr Admin: 08/18/18 11:31 Dose: 1,000 mls/hr Sodium Chloride (Normal Saline 0.9%) 1,000 mls @ 1,000 mls/hr IV BOLUS ONE Stop: 08/18/18 12:20 Last Infusion: 08/18/18 13:55 Dose: 0 mls/hr Admin: 08/18/18 12:27 Dose: 1,000 mls/hr Ketorolac Tromethamine (Toradol) 30 mg IV NOW ONE Stop: 08/18/18 13:38 Last Admin: 08/18/18 14:10 Dose: 30 mg Ondansetron HCl (Zofran) 4 mg IV NOW ONE Stop: 08/18/18 11:11 Last Admin: 08/18/18 11:31 Dose: 4 mg Pantoprazole Sodium (Protonix) 40 mg IV NOW ONE Stop: 08/18/18 11:18 Last Admin: 08/18/18 11:31 Dose: 40 mg Prochlorperazine (Compazine) 10 mg IV NOW ONE Stop: 08/18/18 13:38 Last Admin: 08/18/18 14:10 Dose: 10 mg Vital Signs - 8 hr 08/18/18 13:15 08/18/18 14:10 08/18/18 14:26 Pulse Rate 80 78 61 Respiratory Rate 16 Blood Pressure 116/78 Blood Pressure [Right Arm] 107/65 109/66 Pulse Oximetry 100 98 08/18/18 15:46 Pulse Rate 70 Respiratory Rate 18 Blood Pressure Blood Pressure [Right Arm] 112/78 Pulse Oximetry 100 <Karla Simpson DO - Last Filed: 08/19/18 10:11> Orders Ordered: Discontinued Medications Sodium Chloride (Normal Saline 0.9%) 1,000 mls @ 1,000 mls/hr IV BOLUS ONE Stop: 08/18/18 12:10 Last Infusion: 08/18/18 12:24 Dose: 0 mls/hr Admin: 08/18/18 11:31 Dose: 1,000 mls/hr Sodium Chloride (Normal Saline 0.9%) 1,000 mls @ 1,000 mls/hr IV BOLUS ONE Stop: 08/18/18 12:20 Last Infusion: 08/18/18 13:55 Dose: 0 mls/hr Admin: 08/18/18 12:27 Dose: 1,000 mls/hr Ketorolac Tromethamine (Toradol) 30 mg IV NOW ONE Stop: 08/18/18 13:38 Last Admin: 08/18/18 14:10 Dose: 30 mg Ondansetron HCl (Zofran) 4 mg IV NOW ONE Stop: 08/18/18 11:11 Last Admin: 08/18/18 11:31 Dose: 4 mg Pantoprazole Sodium (Protonix) 40 mg IV NOW ONE Stop: 08/18/18 11:18 Last Admin: 08/18/18 11:31 Dose: 40 mg Prochlorperazine (Compazine) 10 mg IV NOW ONE Stop: 08/18/18 13:38 Last Admin: 08/18/18 14:10 Dose: 10 mg Vital Signs - 8 hr 08/18/18 13:15 08/18/18 14:10 08/18/18 14:26 Pulse Rate 80 78 61 Respiratory Rate 16 Blood Pressure 116/78 Blood Pressure [Right Arm] 107/65 109/66 Pulse Oximetry 100 98 08/18/18 15:46 Pulse Rate 70 Respiratory Rate 18 Blood Pressure Blood Pressure [Right Arm] 112/78 Pulse Oximetry 100 MDM - Nausea/Vomiting/Diarrhea <Carol Medina PA-C - Last Filed: 08/18/18 20:46> Lab Data Result diagrams: 08/18/18 11:20 08/18/18 11:20 Lab Results 08/18/18 08/18/18 08/18/18 Range/Units 11:20 11:20 11:20 WBC 10.6 (4.5-11.0) X10^3/uL RBC 5.13 (4.0-5.2) X10^6/uL Hgb 14.9 (12.0-16.0) g/dL Hct 42.9 (36-46) % MCV 83.7 (80-100) fL MCH 29.1 (26-34) PG MCHC 34.8 (30-36) % RDW 12.7 (11.6-14.8) % Plt Count 238 (150-400) X10^3/uL Neut % (Auto) 93.8 H (50-75) % Lymph % (Auto) 2.7 L (25-40) % Lander % (Auto) 2.9 L (3-14) % Eos % (Auto) 0.2 L (2-4) % Baso % (Auto) 0.4 (0-2) % Neut # (Auto) 9900 H (0316-2704) /uL Lymph # (Auto) 300 L (0166-8084) /uL Lander # (Auto) 300 (0-900) /uL Eos # (Auto) 0 (0-450) /uL Baso # (Auto) 0 (0-100) /uL PT 12.9 H (10.1-12.7) SECONDS INR 1.1 (0.9-1.3) APTT 31 (26.4-36.2) SECONDS Sodium 139 (137-145) mmol/L Potassium 3.5 (3.4-5.1) mmol/L Chloride 101 (98-107) mmol/L Carbon Dioxide 27 (22-32) mmol/L BUN 20 H (7-17) mg/dL Creatinine 0.70 (0.52-1.04) mg/dL Estimated GFR > 60.0 (>60) mL/min BUN/Creatinine Ratio 28.6 H (6-22) Glucose 117 H (70-100) mg/dL Calcium 9.7 (8.4-10.2) mg/dL Total Bilirubin 1.4 H (0.2-1.3) mg/dL AST 21 (14-36) IU/L ALT 21 (9-52) IU/L Alkaline Phosphatase 68 (38-126) U/L Total Protein 8.7 H (6.3-8.2) g/dL Albumin 5.1 H (3.5-5.0) g/dL Globulin 3.6 (1.7-4.1) g/dL Albumin/Globulin Ratio 1.4 (1.0-2.8) Lipase 96 (23-300) U/L Urine RBC (0-5/HPF) Urine WBC (0-5/HPF) Ur Squamous Epith Cells (0-5/HPF) Urine Bacteria (None) Ur Culture Indicated? 08/18/18 Range/Units 14:25 WBC (4.5-11.0) X10^3/uL RBC (4.0-5.2) X10^6/uL Hgb (12.0-16.0) g/dL Hct (36-46) % MCV (80-100) fL MCH (26-34) PG MCHC (30-36) % RDW (11.6-14.8) % Plt Count (150-400) X10^3/uL Neut % (Auto) (50-75) % Lymph % (Auto) (25-40) % Lander % (Auto) (3-14) % Eos % (Auto) (2-4) % Baso % (Auto) (0-2) % Neut # (Auto) (7732-2335) /uL Lymph # (Auto) (9872-3353) /uL Lander # (Auto) (0-900) /uL Eos # (Auto) (0-450) /uL Baso # (Auto) (0-100) /uL PT (10.1-12.7) SECONDS INR (0.9-1.3) APTT (26.4-36.2) SECONDS Sodium (137-145) mmol/L Potassium (3.4-5.1) mmol/L Chloride (98-107) mmol/L Carbon Dioxide (22-32) mmol/L BUN (7-17) mg/dL Creatinine (0.52-1.04) mg/dL Estimated GFR (>60) mL/min BUN/Creatinine Ratio (6-22) Glucose (70-100) mg/dL Calcium (8.4-10.2) mg/dL Total Bilirubin (0.2-1.3) mg/dL AST (14-36) IU/L ALT (9-52) IU/L Alkaline Phosphatase (38-126) U/L Total Protein (6.3-8.2) g/dL Albumin (3.5-5.0) g/dL Globulin (1.7-4.1) g/dL Albumin/Globulin Ratio (1.0-2.8) Lipase (23-300) U/L Urine RBC None seen (0-5/HPF) Urine WBC 5-10/hpf H (0-5/HPF) Ur Squamous Epith Cells 10-30 /hpf H (0-5/HPF) Urine Bacteria None seen (None) Ur Culture Indicated? Cult not indicated Point of Care Testing Test Results Negative Urine Dip Bedside Urine Glucose Negative Bedside Urine Bilirubin + 1 Bedside Urine Ketone +++ 80 Urine Specific [place] 1.015 Bedside Urine Occult Blood - Negative Bedside Urine pH 8.0 Bedside Urine Protein +/- 15 Bedside Urine Urobilinogen +/- 1mg Bedside Urine Nitrite - Negative Bedside Urine Leukocytes ++ 125 Esterase <Karla Simpson DO - Last Filed: 08/19/18 10:11> Lab Data Lab Results 08/18/18 08/18/18 08/18/18 Range/Units 11:20 11:20 11:20 WBC 10.6 (4.5-11.0) X10^3/uL RBC 5.13 (4.0-5.2) X10^6/uL Hgb 14.9 (12.0-16.0) g/dL Hct 42.9 (36-46) % MCV 83.7 (80-100) fL MCH 29.1 (26-34) PG MCHC 34.8 (30-36) % RDW 12.7 (11.6-14.8) % Plt Count 238 (150-400) X10^3/uL Neut % (Auto) 93.8 H (50-75) % Lymph % (Auto) 2.7 L (25-40) % Lander % (Auto) 2.9 L (3-14) % Eos % (Auto) 0.2 L (2-4) % Baso % (Auto) 0.4 (0-2) % Neut # (Auto) 9900 H (3471-2581) /uL Lymph # (Auto) 300 L (9132-0292) /uL Lander # (Auto) 300 (0-900) /uL Eos # (Auto) 0 (0-450) /uL Baso # (Auto) 0 (0-100) /uL PT 12.9 H (10.1-12.7) SECONDS INR 1.1 (0.9-1.3) APTT 31 (26.4-36.2) SECONDS Sodium 139 (137-145) mmol/L Potassium 3.5 (3.4-5.1) mmol/L Chloride 101 (98-107) mmol/L Carbon Dioxide 27 (22-32) mmol/L BUN 20 H (7-17) mg/dL Creatinine 0.70 (0.52-1.04) mg/dL Estimated GFR > 60.0 (>60) mL/min BUN/Creatinine Ratio 28.6 H (6-22) Glucose 117 H (70-100) mg/dL Calcium 9.7 (8.4-10.2) mg/dL Total Bilirubin 1.4 H (0.2-1.3) mg/dL AST 21 (14-36) IU/L ALT 21 (9-52) IU/L Alkaline Phosphatase 68 (38-126) U/L Total Protein 8.7 H (6.3-8.2) g/dL Albumin 5.1 H (3.5-5.0) g/dL Globulin 3.6 (1.7-4.1) g/dL Albumin/Globulin Ratio 1.4 (1.0-2.8) Lipase 96 (23-300) U/L Urine RBC (0-5/HPF) Urine WBC (0-5/HPF) Ur Squamous Epith Cells (0-5/HPF) Urine Bacteria (None) Ur Culture Indicated? 08/18/18 Range/Units 14:25 WBC (4.5-11.0) X10^3/uL RBC (4.0-5.2) X10^6/uL Hgb (12.0-16.0) g/dL Hct (36-46) % MCV (80-100) fL MCH (26-34) PG MCHC (30-36) % RDW (11.6-14.8) % Plt Count (150-400) X10^3/uL Neut % (Auto) (50-75) % Lymph % (Auto) (25-40) % Lander % (Auto) (3-14) % Eos % (Auto) (2-4) % Baso % (Auto) (0-2) % Neut # (Auto) (3443-2129) /uL Lymph # (Auto) (4662-5373) /uL Lander # (Auto) (0-900) /uL Eos # (Auto) (0-450) /uL Baso # (Auto) (0-100) /uL PT (10.1-12.7) SECONDS INR (0.9-1.3) APTT (26.4-36.2) SECONDS Sodium (137-145) mmol/L Potassium (3.4-5.1) mmol/L Chloride (98-107) mmol/L Carbon Dioxide (22-32) mmol/L BUN (7-17) mg/dL Creatinine (0.52-1.04) mg/dL Estimated GFR (>60) mL/min BUN/Creatinine Ratio (6-22) Glucose (70-100) mg/dL Calcium (8.4-10.2) mg/dL Total Bilirubin (0.2-1.3) mg/dL AST (14-36) IU/L ALT (9-52) IU/L Alkaline Phosphatase (38-126) U/L Total Protein (6.3-8.2) g/dL Albumin (3.5-5.0) g/dL Globulin (1.7-4.1) g/dL Albumin/Globulin Ratio (1.0-2.8) Lipase (23-300) U/L Urine RBC None seen (0-5/HPF) Urine WBC 5-10/hpf H (0-5/HPF) Ur Squamous Epith Cells 10-30 /hpf H (0-5/HPF) Urine Bacteria None seen (None) Ur Culture Indicated? Cult not indicated Point of Care Testing Test Results Negative Urine Dip Bedside Urine Glucose Negative Bedside Urine Bilirubin + 1 Bedside Urine Ketone +++ 80 Urine Specific [place] 1.015 Bedside Urine Occult Blood - Negative Bedside Urine pH 8.0 Bedside Urine Protein +/- 15 Bedside Urine Urobilinogen +/- 1mg Bedside Urine Nitrite - Negative Bedside Urine Leukocytes ++ 125 Esterase Discharge Plan Departure Patient Disposition: Home Clinical Impression: Dehydration Gastritis Qualifiers: Gastritis type: unspecified gastritis Chronicity: acute Gastritis bleeding: without bleeding Qualified Code(s): K29.00 - Acute gastritis without bleeding Vomiting Qualifiers: Vomiting type: unspecified Vomiting Intractability: non-intractable Nausea presence: with nausea Qualified Code(s): R11.2 - Nausea with vomiting, unspecified Discharge Date/Time: 08/18/18 15:48 Interventions: ED Discharge Assessment Last Done: 08/18/18 15:47 Instructions: DI for Dehydration -- Adult, DI for Gastritis, DI for Vomiting -- Adult Activity Restrictions/Additional Instructions: I think your prolonged vomiting caused you to become dehydrated today. Since you are feeling better, you can return home to rest. Please continue drinking plenty of clear fluids today. You can try a few saltines, applesauce, or some white rice or banana if you feel hungry later, but try small amounts of food at a time and keep it very bland. Continue these foods tomorrow and you can slowly advance your diet as you feel better. Please follow-up with your PCP if you are not feeling completely better in the next couple of days. You should return to the emergency department as we talked about if you are feeling acutely worse again. I have sent a prescription for nausea medicine in to [facility] for you in [place]. Prescriptions: New ondansetron 4 mg tablet,disintegrating 4 mg PO DAILY PRN (Reason: nausea and vomiting) Qty: 8 RF: 0 No Action diltiazem HCl 120 mg Capsule,Extended Release 24 Hr 120 mg PO DAILY RF: 0 metoprolol tartrate 25 mg Tablet 25 mg PO DAILY PRN (Reason: as directed) RF: 0 Referrals: [facility] [Provider Group] <Karla Simpson DO - Last Filed: 08/19/18 10:11> Cosign ED Attending Cosignature Attestation: I was immediately available in the department for consultation. This documentation has been reviewed and I agree with assessment and plan. Supervised by Karla Simpson DO
[2018-08-18] MEDS: SODIUM CHLORIDE 0.9% 1,000 ML 1000 ML IV ×2 (11:31→12:27)
[2018-08-18] MEDS: PANTOPRAZOLE 40 MG VIAL IV (11:31)
[2018-08-18] MEDS: ONDANSETRON 4 MG/2 ML INJ IV (11:31)
[2018-08-18 11:36] LABS: Add Manual Diff / Slide Review NO; Basophils Absolute Auto 0 /uL (0-100); Basophils Percent Auto 0.4 % (0-2); Eosinophils Absolute Auto 0 /uL (0-450); Eosinophils Percent Auto 0.2 % (2-4); Hematocrit 42.9 % (36-46); Hemoglobin 14.9 g/dL (12.0-16.0); Lymphocytes Absolute Auto 300 /uL (1100-4500); Lymphocytes Percent Auto 2.7 % (25-40); Mean Corpuscular HGB Conc 34.8 % (30-36); Mean Corpuscular Hemoglobin 29.1 PG (26-34); Mean Corpuscular Volume 83.7 fL (80-100); Monocytes Absolute Auto 300 /uL (0-900); Monocytes Percent Auto 2.9 % (3-14); Neutrophils Absolute Auto 9900 /uL (1500-7000); Neutrophils Percent Auto 93.8 % (50-75); Platelet Count 238 X10^3/uL (150-400); Red Blood Cell Count 5.13 X10^6/uL (4.0-5.2); Red Cell Distribution Width 12.7 % (11.6-14.8); White Blood Cell Count 10.6 X10^3/uL (4.5-11.0)
[2018-08-18 11:47] LABS: INR 1.1 (0.9-1.3); Prothrombin Time 12.9 SECONDS (10.1-12.7)
[2018-08-18 11:50] LABS: PTT Partial Thromboplastin Tim 31 SECONDS (26.4-36.2)
[2018-08-18 12:02] LABS: Alanine Aminotransferase 21 IU/L (9-52); Albumin 5.1 g/dL (3.5-5.0); Albumin Globulin Ratio 1.4 (1.0-2.8); Alkaline Phosphatase 68 U/L (38-126); Aspartate Aminotransferase 21 IU/L (14-36); BUN Creatinine Ratio 28.6 (6-22); Bilirubin Total 1.4 mg/dL (0.2-1.3); Blood Urea Nitrogen 20 mg/dL (7-17); Calcium 9.7 mg/dL (8.4-10.2); Carbon Dioxide 27 mmol/L (22-32); Chloride 101 mmol/L (98-107); Estimated Glomerular Filt Rate > 60.0 mL/min (>60); Globulin 3.6 g/dL (1.7-4.1); Glucose 117 mg/dL (70-100); HEMOLYSIS < 15 (0-50); Lipase 96 U/L (23-300); Potassium 3.5 mmol/L (3.4-5.1); Sodium 139 mmol/L (137-145); Total Protein 8.7 g/dL (6.3-8.2)
--- NOTE | 2018-08-18 13:25 | PC.NURSE ---
Pt requested for urine sample but unable to provided at this time. Pt had 2 liters of IVF infusion
[2018-08-18] MEDS: PROCHLORPERAZINE 10 MG/2 ML VIAL IV (14:10)
[2018-08-18] MEDS: KETOROLAC 60 MG/2 ML VIAL 30 MG IV (14:10)
--- NOTE | 2018-08-18 14:27 | PC.NURSE ---
Pt reports dizziness improved during ambulation to bathroom but having recurring nausea. medicated pt with compazine in slow IVP mixed with NS and toradol for pain.
[2018-08-18 14:35] LABS: Bacteria Urine None Seen; RBC Urine None Seen (0-5/HPF)
[2018-08-18 14:47] LABS: WBC Urine 5-10/HPF (0-5/HPF)
[2018-08-18 14:48] LABS: Culture Indicated Urine Cult Not Indicated; Squamous Epithelial Cell Urine 10-30 /HPF (0-5/HPF)
--- NOTE | 2018-08-18 14:54 | PC.NURSE ---
Pt ambulated to 3 in stable gaits and taking ice chips for PO challenge.
== END 2018-08-18 15:48 | disposition home or self-care (01) ==
PROVIDERS: Emergency Provider Internal Medicine
DX: E86.0 Dehydration (principal); K29.00 Acute gastritis without bleeding; R11.2 Nausea with vomiting, unspecified
CPT/HCPCS: 36591; 80053; 81003; 81015; 81025; 83690; 85025; 85610; 85730; 96361; 96374; 96375; 99284; C9113; J0780; J1885; J2405

== ENCOUNTER 2018-11-10 17:52 | Observation (INO) | payer OTHER, SELFPAY ==
[2018-11-10] VITALS (11 sets, daily range): BP systolic 108–162; BP diastolic 48–75; PULSE 39–67; RESP 8–26; TEMP 36.5–36.7; O2SAT 88–99; BMI 21.4
--- NOTE | 2018-11-10 | PATH_ITS ---
[facility] Accession Number: [id number] . 01 Material submitted: . gallbladder - GALLBLADDER . 01 Clinical history: . CHEST AND UPPER ABD PAIN . 02 Diagnosis: Gallbladder, Laparoscopic Cholecystectomy: Chronic cholecystitis, cholesterolosis, and cholelithiasis. One benign cystic duct lymph node (0). [facility]/11/13/2018 . 02 Electronically signed: . Areli Silva MD, Pathologist NPI- [id number] . 01 Gross description: . Received in formalin, labeled gallbladder, is an intact gallbladder (length-7.4 cm, diameter-3.2 cm) with pale pink smooth shiny serosa and a patent cystic duct. A possible lymph node (0.4 x 0.3 x 0.1) is identified. The lumen contains orange-yellow solid friable calculi (5.5 x 3.5 x 2.2 cm in aggregate). The mucosa is camejo-pink flat and rough. The wall is up to 0.1 cm thick. No nodules, masses or lesions are identified. Section code: (A1) cystic duct resection margin and two serial sections from the body; (A2) two longitudinal sections from the fundus; (A3) one intact lymph node. ([id number]) /MRV . 02 Pathologist provided ICD-10: K81.1, K80.60 . 02 CPT . 441210 Performed at: 01 [facility] [address] [id number] MD Rodger Miller MD Phone: [phone] Performed at: 02 [facility] [address] [place] [id number] MD Isabela Avila MD Phone: [phone]
--- NOTE | 2018-11-10 17:57 | DI.RAD.S_ITS ---
PROCEDURE: XR CHEST 1V INDICATIONS: chest pain TECHNIQUE: One view of the chest was acquired. COMPARISON: [facility], CR, XR CHEST 1V, 12/05/2017, 22:38. [facility], CR, XR CHEST 1V, 11/25/2017, 10:26. FINDINGS: Surgical changes and devices: None. Lungs and pleura: Lungs are clear. No pleural effusions or pneumothorax. Mediastinum: Mediastinal contours appear normal. Heart size is normal. Bones and chest wall: No suspicious bony lesions. Overlying soft tissues appear unremarkable. IMPRESSION: No acute cardiopulmonary disease. Dictated by: Marcelo Colon M.D. on 11/10/2018 at 18:26 Approved by: Marcelo Colon M.D. on 11/10/2018 at 18:27
--- NOTE | 2018-11-10 18:11 | ED.CHESTPAIN ---
HPI - Chest Pain General Chief Complaint: Chest Pain Stated Complaint: Chest and Upper Abd Pain Time Seen by Provider: 11/10/18 18:09 Source: patient and family Mode of arrival: ambulatory Limitations: no limitations History of Present Illness HPI narrative: 33-year-old female nonsmoker with relatively benign medical history presents with her in the chief complaint of severe epigastric pain with radiation to her back that started yesterday. The pain is much worse when she eats or drinks and seems to improve when not eating. She denies any history of the same. She is not dizzy nor weak or lightheaded. She has significantly nauseated and has very little appetite. She last had any oral intake early this morning MD complaint: chest pain Onset (ago): hour(s) Duration: constant Onset: during rest Pain location: substernal and epigastric Severity: moderate Quality: aching Pain radiation: back Relieving factors: nothing Exacerbating factors: eating Associated symptoms: nausea Treatments prior to arrival chest pain: none Related Data Home Medications Medication Instructions Recorded Confirmed diltiazem HCl 120 mg PO DAILY 08/18/18 08/18/18 metoprolol tartrate 25 mg PO DAILY PRN 08/18/18 08/18/18 Previous Rx's Medication Instructions Recorded ondansetron 4 mg PO DAILY PRN #8 tab 08/18/18 Allergies Allergy/AdvReac Type Severity Reaction Status Date / Time hydrocodone Allergy Severe Difficulty Verified 08/18/18 11:06 Breathing Review of Systems Constitutional Constitutional: Denies chills, Denies fatigue, Denies fever(s), Denies frequent falls, Denies lethargy and Denies weakness Eyes Eyes: Denies change in vision, Denies eye discharge, Denies irritation and Denies loss of vision ENT Ears, Nose, Mouth, and Throat: Denies change in voice, Denies dizziness, Denies neck pain, Denies sore throat and Denies throat swelling Cardiovascular Cardiovascular: Reports chest pain, Denies irregular heart rhythm, Denies lightheadedness, Denies palpitations, Denies dyspnea, Denies dyspnea on exertion and Denies orthopnea Respiratory Respiratory: Denies cough, Denies dyspnea, Denies dyspnea on exertion and Denies wheezing Gastrointestinal Gastrointestinal: Reports abdominal pain, Denies change in bowel habits, Denies diarrhea, Reports nausea and Denies vomiting Genitourinary Genitourinary: Denies hematuria, Denies flank pain, Denies urinary incontinence and Denies urinary urgency Musculoskeletal Musculoskeletal: Denies back pain, Denies muscle weakness, Denies neck pain, Denies numbness and Denies tingling Integumentary/Breasts Skin/Breast: Denies pruritus, Denies erythema, Denies rash and Denies wounds Neurologic Neurologic: Denies behavioral changes, Denies confusion, Denies dizziness, Denies frequent falls, Denies loss of vision, Denies numbness, Denies tingling and Denies weakness Psychiatric Psychiatric: Denies anxiety, Denies behavioral changes, Denies confusion, Denies depression, Denies homicidal ideation and Denies suicidal ideation Endocrine Endocrine: Denies fatigue, Denies flushing and Denies palpitations Hematologic/Lymphatic Hematologic/Lymphatic: Denies easy bruising Allergic/Immunologic Allergic/Immunologic: Denies urticaria, Denies throat swelling and Denies wheezing [facility] Medical History AV node dysfunction (Chronic) Status post tubal ligation (Resolved) Surgical History History of radiofrequency ablation procedure for cardiac arrhythmia (Resolved) Status post (Resolved) Social History household members: children Smoking Status: Former smoker Social History household members: children Smoking Status: Former smoker Exam Narrative Exam Narrative: GENERAL: [33] year old patient appears stated age. Well-nourished, well-developed patient, in mild distress. HEAD: Atraumatic. Normocephalic. EYES: Pupils equal round and reactive. Extraocular motions intact. No scleral icterus. No injection or drainage. ENT: Nose without bleeding, purulent drainage. Throat without erythema, tonsillar hypertrophy or exudate. Airway patent. NECK: Trachea midline. Non tender CARDIOVASCULAR: Regular rate and rhythm without murmurs, gallops, or rubs. RESPIRATORY: Clear to auscultation. Breath sounds equal bilaterally. No wheezes, rales, or rhonchi. GASTROINTESTINAL: Abdomen soft, tender in the epigastrium, nondistended. EXTREMITIES: No edema or joint tenderness. BACK: Nontender without deformity or crepitance. No flank tenderness. NEURO: AOx3. SKIN: No rash or erythema of visible areas Initial Vital Signs Initial Vital Signs: Vital Signs Temperature 97.7 F 11/10/18 17:55 Pulse Rate 54 L 11/10/18 17:55 Respiratory Rate 11/10/18 17:55 Blood Pressure 141/71 H 11/10/18 17:55 Pulse Oximetry 99 11/10/18 17:55 Course Orders Ordered: ED Orders 11/10/18 17:57 XR chest 1V Stat EKG-12 Lead Stat 11/10/18 18:10 Complete Blood Count AUTO DIFF Stat Comprehensive Metabolic Panel Stat Lipase Stat Magnesium Stat Partial Thromboplastin Time Stat Prothrombin Time INR Stat Troponin & CK Cardiac Panel Stat 11/10/18 18:58 US abdomen limited Stat 11/10/18 19:05 Urine Microscopic Stat Acetaminophen (Tylenol) 650 mg PO Q4HR PRN PRN Reason: As Needed for Fever/Mild Pain Diltiazem HCl (Cardizem Cd) 120 mg PO DAILY TERESA Fentanyl (Sublimaze) 50 mcg IV Q5MIN PRN PRN Reason: Pain, Moderate (4-6) Last Admin: 11/10/18 23:44 Dose: 50 mcg Documented by: Admin: 11/10/18 23:35 Dose: 50 mcg Documented by: ALEKSANDAR Lactated Ringer's (Lactated Ringers) 1,000 mls @ 42 mls/hr IV CONT TERESA Sodium Chloride (Normal Saline 0.9%) 1,000 mls @ 84 mls/hr IV NOW ONE Stop: 11/11/18 10:44 Last Admin: 11/10/18 22:00 Dose: 84 mls/hr Documented by: AURA Ketorolac Tromethamine (Toradol) 30 mg IV Q6HR [facility] Stop: 11/15/18 23:29 Metoclopramide HCl (Reglan) 10 mg IV NOW PRN PRN Reason: Nausea And Vomiting Metoprolol Tartrate (Lopressor) 25 mg PO DAILY PRN PRN Reason: as directed Ondansetron HCl (Zofran) 4 mg IV NOW PRN PRN Reason: Nausea And Vomiting Ondansetron HCl (Zofran Odt) 4 mg PO DAILY PRN PRN Reason: nausea and vomiting Oxycodone HCl (Percolone) 5 mg PO Q4HR PRN PRN Reason: Pain, Moderate (4-6) Oxycodone/Acetaminophen (Percocet 5/325) 1 tab PO Q30MIN PRN PRN Reason: Mild or moderate pain Discontinued Medications Bupivacaine HCl (Sensorcaine 0.5% (Pf)) 30 ml INJ NOW ONE Stop: 11/10/18 22:53 Last Admin: 11/10/18 22:52 Dose: 10 ml Documented by: RENETTA Mace Hydrox/Mg Hydrox/Simethicone 20 ml/ Lidocaine HCl 15 ml 0 ml PO NOW ONE Stop: 11/10/18 18:59 Last Admin: 11/10/18 19:09 Dose: 35 ml Documented by: SOWMYA Hydromorphone HCl (Dilaudid) 0.5 mg IV NOW ONE Stop: 11/11/18 00:00 Last Admin: 11/11/18 00:07 Dose: Not Given Documented by: AKUNZE Hydromorphone HCl (Dilaudid) 0.5 mg IV NOW ONE Stop: 11/11/18 00:06 Last Admin: 11/11/18 00:06 Dose: 0.5 mg Documented by: ADAMUNZE Hydromorphone HCl (Dilaudid) 0.5 mg IV NOW ONE Stop: 11/11/18 00:16 Cefazolin Sodium/Dextrose (Ancef) 2 gm in 100 mls @ 200 mls/hr IV NOW ONE Stop: 11/10/18 21:26 Piperacillin/Tazobactam/Dextrose (Zosyn) 3.375 gm in 50 mls @ 100 mls/hr IV NOW ONE Stop: 11/10/18 21:37 Last Infusion: 11/10/18 22:21 Dose: 0 mls/hr Documented by: Admin: 11/10/18 22:08 Dose: 100 mls/hr Documented by: AURA Famotidine (Pepcid) 20 mg in 50 mls @ 200 mls/hr IV NOW ONE Stop: 11/11/18 00:13 Last Infusion: 11/11/18 00:53 Dose: 200 mls/hr Documented by: Admin: 11/11/18 00:12 Dose: 200 mls/hr Documented by: ALEKSANDAR Pantoprazole Sodium (Protonix) 40 mg IV NOW ONE Stop: 11/10/18 18:58 Last Admin: 11/10/18 19:09 Dose: 40 mg Documented by: SOWMYA Juarez Consultation #1: Upon receipt of a ultrasound general surgery was contacted who will see the patient at the bedside Vital Signs Vital signs: Vital Signs - 8 hr 11/10/18 17:55 11/10/18 18:30 11/10/18 18:56 Temperature 97.7 F Pulse Rate 54 L 51 L Respiratory Rate 19 16 26 H Blood Pressure 141/71 H Blood Pressure [Right Arm] 110/48 L Pulse Oximetry 99 97 88 L 11/10/18 19:30 11/10/18 20:00 Temperature Pulse Rate 67 51 L Respiratory Rate 14 18 Blood Pressure Blood Pressure [Right Arm] 162/75 H 137/65 Pulse Oximetry 98 96 MDM - Chest Pain Lab Data Result diagrams: 11/10/18 18:10 11/10/18 18:10 Labs: Lab Results 11/10/18 11/10/18 11/10/18 Range/Units 18:10 18:10 18:10 WBC 9.8 (4.5-11.0) X10^3/uL RBC 4.82 (4.0-5.2) X10^6/uL Hgb 14.0 (12.0-16.0) g/dL Hct 40.2 (36-46) % MCV 83.5 (80-100) fL MCH 29.1 (26-34) PG MCHC 34.8 (30-36) % RDW 12.8 (11.6-14.8) % Plt Count 255 (150-400) X10^3/uL Neut % (Auto) 74.4 (50-75) % Lymph % (Auto) 18.5 L (25-40) % [place] % (Auto) 5.1 (3-14) % Eos % (Auto) 1.0 L (2-4) % Baso % (Auto) 1.0 (0-2) % Neut # (Auto) 7300 H (9682-0043) /uL Lymph # (Auto) 1800 (5558-5738) /uL [place] # (Auto) 500 (0-900) /uL Eos # (Auto) 100 (0-450) /uL Baso # (Auto) 100 (0-100) /uL PT 11.2 (10.1-12.7) SECONDS INR 1.0 (0.9-1.3) APTT 33 D (26.4-36.2) SECONDS Sodium 139 (137-145) mmol/L Potassium 3.7 (3.4-5.1) mmol/L Chloride 103 (98-107) mmol/L Carbon Dioxide 26 (22-32) mmol/L BUN 15 (7-17) mg/dL Creatinine 0.60 (0.52-1.04) mg/dL Estimated GFR > 60.0 (>60) mL/min BUN/Creatinine Ratio 25.0 H (6-22) Glucose 98 (70-100) mg/dL Calcium 9.8 (8.4-10.2) mg/dL Magnesium 1.9 (1.6-2.3) mg/dL Total Bilirubin 0.5 (0.2-1.3) mg/dL AST 19 (14-36) IU/L ALT 21 (9-52) IU/L Alkaline Phosphatase 47 (38-126) U/L Total Creatine Kinase 45 (30-135) U/L CK-MB (CK-2) TNP CK-MB (CK-2) Rel Index TNP Troponin I < 0.012 (0.01-0.034) ng/mL Total Protein 7.8 (6.3-8.2) g/dL Albumin 4.8 (3.5-5.0) g/dL Globulin 3.0 (1.7-4.1) g/dL Albumin/Globulin Ratio 1.6 (1.0-2.8) Lipase 176 (23-300) U/L Urine RBC (0-5/HPF) Urine WBC (0-5/HPF) Ur Squamous Epith Cells (0-5/HPF) Amorphous Sediment Urine Bacteria (None) Ur Culture Indicated? 11/10/18 Range/Units 19:05 WBC (4.5-11.0) X10^3/uL RBC (4.0-5.2) X10^6/uL Hgb (12.0-16.0) g/dL Hct (36-46) % MCV (80-100) fL MCH (26-34) PG MCHC (30-36) % RDW (11.6-14.8) % Plt Count (150-400) X10^3/uL Neut % (Auto) (50-75) % Lymph % (Auto) (25-40) % [place] % (Auto) (3-14) % Eos % (Auto) (2-4) % Baso % (Auto) (0-2) % Neut # (Auto) (5611-1787) /uL Lymph # (Auto) (2824-4985) /uL [place] # (Auto) (0-900) /uL Eos # (Auto) (0-450) /uL Baso # (Auto) (0-100) /uL PT (10.1-12.7) SECONDS INR (0.9-1.3) APTT (26.4-36.2) SECONDS Sodium (137-145) mmol/L Potassium (3.4-5.1) mmol/L Chloride (98-107) mmol/L Carbon Dioxide (22-32) mmol/L BUN (7-17) mg/dL Creatinine (0.52-1.04) mg/dL Estimated GFR (>60) mL/min BUN/Creatinine Ratio (6-22) Glucose (70-100) mg/dL Calcium (8.4-10.2) mg/dL Magnesium (1.6-2.3) mg/dL Total Bilirubin (0.2-1.3) mg/dL AST (14-36) IU/L ALT (9-52) IU/L Alkaline Phosphatase (38-126) U/L Total Creatine Kinase (30-135) U/L CK-MB (CK-2) CK-MB (CK-2) Rel Index Troponin I (0.01-0.034) ng/mL Total Protein (6.3-8.2) g/dL Albumin (3.5-5.0) g/dL Globulin (1.7-4.1) g/dL Albumin/Globulin Ratio (1.0-2.8) Lipase (23-300) U/L Urine RBC None seen (0-5/HPF) Urine WBC 5-10/hpf H (0-5/HPF) Ur Squamous Epith Cells 10-30 /hpf H (0-5/HPF) Amorphous Sediment 2+ Urine Bacteria Many (>30) H (None) Ur Culture Indicated? Cult not indicated Urine Dip Bedside Urine Glucose Negative Bedside Urine Bilirubin - Negative Bedside Urine Ketone - Negative Urine Specific [place] 1.020 Bedside Urine Occult Blood +/- Bedside Urine pH 6.5 Bedside Urine Protein - Negative Bedside Urine Urobilinogen - Negative Bedside Urine Nitrite - Negative Bedside Urine Leukocytes +++ 500 Esterase Imaging Data Chest x-ray: Radiologist's impression: [address] [address] XRay Report Signed Patient: Nury Martin [facility]#: [id number] : 1985Acct:[id number] Age/Sex: 33 / FDate of Service: 11/10/18 Loc: ED Accession Number: [id number] Procedure: XR chest 1V Ordering Provider: Wm Gagnon D.O. PROCEDURE: XR CHEST 1V INDICATIONS: chest pain TECHNIQUE: One view of the chest was acquired. COMPARISON: [facility], CR, XR CHEST 1V, 12/05/2017, 22:38. [facility], CR, XR CHEST 1V, 11/25/2017, 10:26. FINDINGS: Surgical changes and devices: None. Lungs and pleura: Lungs are clear. No pleural effusions or pneumothorax. Mediastinum: Mediastinal contours appear normal. Heart size is normal. Bones and chest wall: No suspicious bony lesions. Overlying soft tissues appear unremarkable. IMPRESSION: No acute cardiopulmonary disease. Dictated by: Marcelo Colon M.D. on 11/10/2018 at 18:26 Approved by: Marcelo Colon M.D. on 11/10/2018 at 18:27 US - abdomen: Radiologist's impression: [address] [address] Ultrasound Report Signed Patient: Nury Martin [facility]#: [id number] : 1985Acct:[id number] Age/Sex: 33 / FDate of Service: 11/10/18 Loc: ED Accession Number: [id number] Procedure: US abdomen limited Ordering Provider: José Miguel Renner D.O. PROCEDURE: US ABDOMEN LIMITED INDICATIONS: POST PRANDIAL EPIGASTRIC PAIN TECHNIQUE: Real-time focused scanning was performed of the abdomen, with image documentation. COMPARISON: None. FINDINGS: Gallbladder contains multiple gallstones. A 7 mm stone is lodged in the gallbladder neck. No gallbladder wall thickening or pericholecystic fluid. There is positive sonographic Fountain's sign. Visualized liver is normal. Common bile duct measures 3.1 mm in diameter. Visualized pancreas is normal. IMPRESSION: 1. Cholelithiasis. A 7 mm stone is lodged in the gallbladder neck. There is sonographic Fountain's sign. Recommend clinical correlation for early acute cholecystitis. 2. Normal caliber of common bile duct. Dictated by: Marcelo Colon M.D. on 11/10/2018 at 19:55 Approved by: Marcelo Colon M.D. on 11/10/2018 at 19:57 Discharge Plan Departure Patient Disposition: Admitted As Inpatient Clinical Impression: Cholelithiases Discharge Date/Time: 11/10/18 21:07 Admit Date/Time: 11/10/18 20:13 Admit Provider: Rogesr Lugo
[2018-11-10 18:19] LABS: Add Manual Diff / Slide Review NO; Basophils Absolute Auto 100 /uL (0-100); Eosinophils Absolute Auto 100 /uL (0-450); Hematocrit 40.2 % (36-46); Lymphocytes Absolute Auto 1800 /uL (1100-4500); Lymphocytes Percent Auto 18.5 % (25-40); Mean Corpuscular HGB Conc 34.8 % (30-36); Mean Corpuscular Hemoglobin 29.1 PG (26-34); Mean Corpuscular Volume 83.5 fL (80-100); Monocytes Absolute Auto 500 /uL (0-900); Monocytes Percent Auto 5.1 % (3-14); Neutrophils Absolute Auto 7300 /uL (1500-7000); Neutrophils Percent Auto 74.4 % (50-75); Platelet Count 255 X10^3/uL (150-400); Red Blood Cell Count 4.82 X10^6/uL (4.0-5.2); Red Cell Distribution Width 12.8 % (11.6-14.8); White Blood Cell Count 9.8 X10^3/uL (4.5-11.0)
[2018-11-10 18:26] LABS: Prothrombin Time 11.2 SECONDS (10.1-12.7)
[2018-11-10 18:29] LABS: PTT Partial Thromboplastin Tim 33 SECONDS (26.4-36.2)
[2018-11-10 18:30] LABS: Alanine Aminotransferase 21 IU/L (9-52); Albumin 4.8 g/dL (3.5-5.0); Albumin Globulin Ratio 1.6 (1.0-2.8); Alkaline Phosphatase 47 U/L (38-126); Aspartate Aminotransferase 19 IU/L (14-36); Bilirubin Total 0.5 mg/dL (0.2-1.3); Blood Urea Nitrogen 15 mg/dL (7-17); Calcium 9.8 mg/dL (8.4-10.2); Carbon Dioxide 26 mmol/L (22-32); Chloride 103 mmol/L (98-107); Creatine Kinase 45 U/L (30-135); Estimated Glomerular Filt Rate > 60.0 mL/min (>60); Glucose 98 mg/dL (70-100); HEMOLYSIS < 15 (0-50); Lipase 176 U/L (23-300); Magnesium 1.9 mg/dL (1.6-2.3); Potassium 3.7 mmol/L (3.4-5.1); Sodium 139 mmol/L (137-145); Total Protein 7.8 g/dL (6.3-8.2)
[2018-11-10 18:42] LABS: Troponin I < 0.012 ng/mL (0.01-0.034)
--- NOTE | 2018-11-10 18:58 | DI.US.S_ITS ---
PROCEDURE: US ABDOMEN LIMITED INDICATIONS: POST PRANDIAL EPIGASTRIC PAIN TECHNIQUE: Real-time focused scanning was performed of the abdomen, with image documentation. COMPARISON: None. FINDINGS: Gallbladder contains multiple gallstones. A 7 mm stone is lodged in the gallbladder neck. No gallbladder wall thickening or pericholecystic fluid. There is positive sonographic Fountain's sign. Visualized liver is normal. Common bile duct measures 3.1 mm in diameter. Visualized pancreas is normal. IMPRESSION: 1. Cholelithiasis. A 7 mm stone is lodged in the gallbladder neck. There is sonographic Fountain's sign. Recommend clinical correlation for early acute cholecystitis. 2. Normal caliber of common bile duct. Dictated by: Marcelo Colon M.D. on 11/10/2018 at 19:55 Approved by: Marcelo Colon M.D. on 11/10/2018 at 19:57
[2018-11-10] MEDS: MAG HYDROX/ALUMINUM/SIMETH SUS 20 ML, LIDOCAINE VISCOUS 2% 15 ML PO (19:09)
[2018-11-10] MEDS: PANTOPRAZOLE 40 MG VIAL IV (19:09)
[2018-11-10 19:31] LABS: RBC Urine None Seen (0-5/HPF)
[2018-11-10 19:41] LABS: WBC Urine 5-10/HPF (0-5/HPF)
[2018-11-10 19:42] LABS: Amorphous Sediment Urine 2+; Bacteria Urine Many (>30); Culture Indicated Urine Cult Not Indicated; Squamous Epithelial Cell Urine 10-30 /HPF (0-5/HPF)
--- NOTE | 2018-11-10 20:59 | PM.HP.1 ---
History of Present Illness History of Present Illness Date Patient Seen: 11/10/18 Time Patient Seen: 20:59 Chief complaint: Chest and Upper Abd Pain Narrative: 33-year-old woman with a history of biliary colic presents to the emergency room with 24 hours of constant right upper quadrant pain. she has associated nausea no vomiting pain radiates to her back. Pain is crampy in nature and improved with pain medication. No prior similar episodes previous biliary colic would typically resolve within several hours after eating. Last oral intake was 7:00 a.m. today. Medical history significant for AV dory dysfunction, sp ablation has loop recorder. Previous surgeries include C section and tubal ligation. Patient History Medical History AV node dysfunction (Chronic) Status post tubal ligation (Resolved) Surgical History History of radiofrequency ablation procedure for cardiac arrhythmia (Resolved) Status post (Resolved) Social History Smoking Status: Former smoker Family & Social History Safety & Behavioral: Feels Safe in Current Yes Environment Tobacco & Substance use: Smoking Status Former smoker alcohol intake frequency a few times a month Substance Use Type marijuana Meds Home Medications and Allergies Home Medications Medication Instructions Recorded Confirmed Type diltiazem HCl 120 mg PO DAILY 08/18/18 08/18/18 History metoprolol tartrate 25 mg PO DAILY PRN 08/18/18 08/18/18 History ondansetron 4 mg PO DAILY PRN #8 tab 08/18/18 Rx Allergies Allergy/AdvReac Type Severity Reaction Status Date / Time hydrocodone Allergy Severe Difficulty Verified 08/18/18 11:06 Breathing Review of Systems Review of Systems Narrative: General-no weight loss, fever or chills Head and Neck-no change in voice, no neck swelling Pulmonary-no cough, no shortness of breath at rest, no wheezing Cardiac-no syncope, claudication, palpitations or lower extremity edema Gastrointestinal-no abdominal distention, change in bowel habits, or jaundice Genitourinary-no hematuria or dysuria Hematology-no hypercoagulability, no abnormal bleeding or bruising Neurological-No seizures, new weakness or dizziness Endocrine-no diabetes, no thyroid or adrenal disorders Psychiatric-no anxiety, depression or substance abuse disorder Exam Vital Signs (past 8 hours): - 11/10/18 17:55 11/10/18 18:30 11/10/18 18:56 Temperature 97.7 F Pulse Rate 54 L 51 L Respiratory Rate 19 16 26 H Blood Pressure 141/71 H Blood Pressure [Right Arm] 110/48 L Pulse Oximetry 99 97 88 L 11/10/18 19:30 11/10/18 20:00 Temperature Pulse Rate 67 51 L Respiratory Rate 14 18 Blood Pressure Blood Pressure [Right Arm] 162/75 H 137/65 Pulse Oximetry 98 96 Oxygen Delivery Method Room Air Narrative Exam Narrative: General-adult female no acute distress, well nourished HEENT-moist mucous membranes, no scleral icterus Neck-supple with full range of motion, no lymphadenopathy Chest- no labored respirations, clear to auscultation bilaterally Cardiac-regular rate and rhythm Abdomen- +Fountain's sign, no peritonitis Extremities-no edema, warm well perfused Neurological-alert and oriented x 3. No focal deficits Skin-normal temperature and turgor, no rashes or ulcers Objective Labs Result Diagrams: 11/10/18 18:10 11/10/18 18:10 Labs: Laboratory Results - last 24 hr 11/10/18 11/10/18 11/10/18 18:10 18:10 18:10 WBC 9.8 RBC 4.82 Hgb 14.0 Hct 40.2 MCV 83.5 MCH 29.1 MCHC 34.8 RDW 12.8 Plt Count 255 Neut % (Auto) 74.4 Lymph % (Auto) 18.5 L [place] % (Auto) 5.1 Eos % (Auto) 1.0 L Baso % (Auto) 1.0 Neut # (Auto) 7300 H Lymph # (Auto) 1800 [place] # (Auto) 500 Eos # (Auto) 100 Baso # (Auto) 100 PT 11.2 INR 1.0 APTT 33 D Sodium 139 Potassium 3.7 Chloride 103 Carbon Dioxide 26 BUN 15 Creatinine 0.60 Estimated GFR > 60.0 BUN/Creatinine Ratio 25.0 H Glucose 98 Calcium 9.8 Magnesium 1.9 Total Bilirubin 0.5 AST 19 ALT 21 Alkaline Phosphatase 47 Total Creatine Kinase 45 CK-MB (CK-2) TNP CK-MB (CK-2) Rel Index TNP Troponin I < 0.012 Total Protein 7.8 Albumin 4.8 Globulin 3.0 Albumin/Globulin Ratio 1.6 Lipase 176 Urine RBC Urine WBC Ur Squamous Epith Cells Amorphous Sediment Urine Bacteria Ur Culture Indicated? 11/10/18 19:05 WBC RBC Hgb Hct MCV MCH MCHC RDW Plt Count Neut % (Auto) Lymph % (Auto) [place] % (Auto) Eos % (Auto) Baso % (Auto) Neut # (Auto) Lymph # (Auto) [place] # (Auto) Eos # (Auto) Baso # (Auto) PT INR APTT Sodium Potassium Chloride Carbon Dioxide BUN Creatinine Estimated GFR BUN/Creatinine Ratio Glucose Calcium Magnesium Total Bilirubin AST ALT Alkaline Phosphatase Total Creatine Kinase CK-MB (CK-2) CK-MB (CK-2) Rel Index Troponin I Total Protein Albumin Globulin Albumin/Globulin Ratio Lipase Urine RBC None seen Urine WBC 5-10/hpf H Ur Squamous Epith Cells 10-30 /hpf H Amorphous Sediment 2+ Urine Bacteria Many (>30) H Ur Culture Indicated? Cult not indicated Assessment & Plan Assessment and plan (1) Cholecystitis: Current visit: Yes Status: Acute Assessment & Plan narrative: 33-year-old see female with history of biliary colic and 24 hours of acute right upper quadrant pain, positive Fountain sign and ultrasound confirming a gallstone lodged within the neck of the gallbladder consistent with acute cholecystitis. I reviewed her labs including CBC and BMP which are unremarkable and abdominal ultrasound with demonstrates a gallstone lodged within gallbladder neck. Nontoxic appearing. Plan NPO Zosyn Laparosocopic possible open cholecystectomy now. Discussed risks of the operation including bleeding infection damage to surrounding structures need for conversion to open operation. Questions have been answered and she is in agreement with this plan
[2018-11-10] MEDS: SODIUM CHLORIDE 0.9% 1,000 ML 84 ML IV (22:00)
[2018-11-10] MEDS: PIPERACILLIN-TAZO 3.375 GM/50 ML FROZ.PIGGY IV (22:08)
--- NOTE | 2018-11-10 22:41 | SUR.OPER ---
Supine on padded OR bed, head on pillow, safety belt at thigh, left arm padded and tucked at side. Right arm secured on padded arm oard <90 degrees abduction. Legs uncrossed. Padded footboard in place. Tape over blanket to secure lower legs.
[2018-11-10] MEDS: BUPIVACAINE 0.5% (PF) VIAL 30 ML INJ (22:52)
--- NOTE | 2018-11-10 23:24 | PM.OP.1 ---
Operative Date/Time/Diagnoses Date of procedure: 11/10/18 Time of procedure: 23:24 Pre-op diagnosis: acute cholecystitis Post-op diagnosis: same Procedure & Clinicians Procedure: Laparoscopic cholecystectomy Same procedure as scheduled: Yes Indications: 33-year-old female with a history of biliary colic presents to the emergency room with 24 hours of right upper quadrant pain a positive Fountain sign and an ultrasound that demonstrated a gallstone stuck within the neck of the gallbladder. Her findings were consistent with acute cholecystitis. Following discussion of the risks benefits alternatives surgical intervention she elected undergo a laparoscopic cholecystectomy. Surgeon: Rogers Lugo Click Yes if Unassisted: Yes Anesthesia Type: General Operative Notes Findings: Acute cholecystitis Specimen(s): other (Gallbladder) Estimated Blood Loss (mL): 10 Procedure in detail: The patient was brought to the operating room placed supine on the table. Bilateral lower extremity compression devices were applied. General anesthesia was induced and they were intubated with an endotracheal tube. They received 3.75 g of Zosyn prior to skin incision. A time-out was performed to ensure the correct patient procedure necessary equipment within the operating room. They were then prepped and draped in the usual sterile fashion. Infraumbilical incision was made the umbilical stalk was grasped and elevated and the fascia was sharply incised. The abdomen was entered atraumatically. A 10 mm trocar was then placed into the abdomen. Pneumoperitoneum was established. The laparoscopic camera was inserted into the abdomen inspection was made that demonstrated no evidence of injury upon entry. We then placed our working ports the 1st 5 mm port high in the epigastrium and then 2 in the right upper quadrant. The gallbladder was grasped and retracted over the liver and grasped laterally by the fundus. The triangle of Calot was exposed. The triangle of calot was then skeletonized using hook electrocautery and demonstrated the cystic duct clearly entering the gallbladder the cystic artery and the liver and in the background. With the critical view of safety established the cystic duct was clipped twice proximally and once distally and then sharply divided and the cystic artery was taken in the same fashion. Next the gallbladder was removed from the liver bed using electro cautery. The liver bed was then inspected for hemostasis and this was achieved. The abdomen was irrigated with sterile saline and inspection was made that showed the clips in good position. The specimen was removed using Endo-Catch. The abdomen was desufflated. The the fascia of the umbilicus was closed with 0 Vicryl in a [id number] fashion. Skin incisions were irrigated and closed with 4-0 Monocryl. The wounds were sealed with Dermabond. Patient emerged from general anesthesia was extubated and transferred to the postoperative care unit missed stable condition. The sponge and instrument count at the end of the operation was correct. Complications: none Post-operative Condition: stable Disposition: observation
[2018-11-10] MEDS: fentaNYL 100 MCG/2 ML INJ 50 MCG IV ×2 (23:35→23:44)
--- NOTE | 2018-11-10 23:47 | PC.NURSE ---
2114- Pt arrived to room 228 from ED via bed. A/O x4, mild epigastric pain, mild distention, and mildly tender ABD, denies nausea. 97%RA, LS clear, denies SOB. BP 132/70, HR 47, Hx cardiac ablation Mar, 2018, and cardiac loop recorder placement at same time, at [facility], Tele # [phone] placed with SB-[id number]. RAC SL, zosyn started with NS flush, and at this time OR up to take pt to surgery. NPO from admit to room. Pt urinated just prior to going down to surgery, SBA. Significant other, Cecil in room awaiting pt's return.
--- NOTE | 2018-11-10 23:51 | SUR.PHASEI ---
pt reported mid chest 4/10 burning pain. VS stable.
--- NOTE | 2018-11-10 23:59 | SUR.PHASEI ---
Dr. Dodd notified pt c/o chest pain 06/18, no tele changes. Hr in the 40s. VVO for famotadine 20mg and Dialudid 0.5mg q min prn pain
[2018-11-11] VITALS (13 sets, daily range): BP systolic 104–128; BP diastolic 60–79; PULSE 44–56; RESP 12–19; TEMP 36.2–36.9; O2SAT 91–100
[2018-11-11] MEDS: HYDROMORPHONE 2 MG INJ 0.5 MG IV (00:06)
[2018-11-11] MEDS: FAMOTIDINE 20 MG/50 ML PIGGYBACK 200 MG IV (00:12)
[2018-11-11] MEDS: HYDROMORPHONE 2 MG INJ (00:14)
--- NOTE | 2018-11-11 00:34 | SUR.PHASEI ---
Report called to Kimberly
--- NOTE | 2018-11-11 01:04 | SUR.PHASEI ---
Pt transferred to the floor with tele. VS stable. IV saline locked. Abd wounds cdi x4. Report to [place]. Transfer routine not available. Dr. Lugo notified, vvo for activity as tolerated, diet as tolerated, scds, and saline lock. Dr. Dodd's orders discontinued.
[2018-11-11] MEDS: OXYCODONE IR 5 MG TABLET PO ×3 (01:26→11:08)
[2018-11-11] MEDS: KETOROLAC 30 MG/ML VIAL IV ×3 (05:03→18:48)
[2018-11-11] MEDS: SODIUM CHLORIDE 0.9% FLUSH 10 ML IV ×2 (05:04→22:07)
--- NOTE | 2018-11-11 06:41 | PC.NURSE ---
Addendum entered by Kimberly Wang R.N. 11/11/18 06:47: Patient did refuse SCDs after approximately 1hr use, educated her and S.O. about importance of SCDs and rational, encouraged her to pump ankles and move legs frequently, she verbally understands. Original Note: Patient arrived to room 228 from PACU at 0045, drowsy but oriented x4, S.O. at bedside. VSS, SpO2 >95% on RA. Medicated with Percolone prn and scheduled IV Toradol for abdominal pain, also using ice pack and splinting. Lap incisions well approximated with glue. Ambulated to BR in am, voided 250ml slightly cloudy urine. Tolerating sips water.
--- NOTE | 2018-11-11 07:59 | P.DS_ITS ---
History of Present Illness History of Present Illness Chief complaint: Chest and Upper Abd Pain Narrative: 33-year-old woman with a history of biliary colic presents to the emergency room with 24 hours of constant right upper quadrant pain. she has associated nausea no vomiting pain radiates to her back. Pain is crampy in nature and improved with pain medication. No prior similar episodes previous biliary colic would typically resolve within several hours after eating. Last oral intake was 7:00 a.m. today. Medical history significant for AV dory dysfunction, sp ablation has loop recorder. Previous surgeries include C section and tubal ligation. Discharge Providers Provider Date of admission: 11/10/18 20:13 Discharge Date: 11/11/18 Discharge provider: Rogers Lugo MD Summary Hospital Course Discharge Diagnosis: acute cholecystitis Hospital Course: 33-year-old female presents to the hospital with acute cholecystitis. She underwent a laparoscopic cholecystectomy which was consistent with acute cholecystitis. Postoperatively her course was unremarkable. On hospital day 1 patient is doing well. She is afebrile, pain is well controlled, tolerating a diet. She is ambulatory and stable for discharge at this time. Wounds are clean dry intact. Status at Discharge Cognitive/behavioral status at discharge: oriented Functional status at discharge: independent ambulation Overall status at discharge: patient is back to baseline Time Spent with Patient Time spent: Less than 30 minutes Exam Vital Signs (past 8 hours): - 11/11/18 00:00 11/11/18 00:10 11/11/18 00:20 Temperature Pulse Rate 45 L 49 L 49 L Respiratory Rate 16 12 13 Blood Pressure 126/71 121/79 109/66 Pulse Oximetry 100 100 100 11/11/18 00:35 11/11/18 00:52 11/11/18 01:15 Temperature 97.9 F 97.9 F Pulse Rate 49 L 56 L 54 L Respiratory Rate 19 17 16 Blood Pressure 118/66 128/71 127/70 Pulse Oximetry 99 96 100 11/11/18 01:45 11/11/18 02:45 11/11/18 03:45 Temperature 97.8 F 97.6 F 97.6 F Pulse Rate 53 L 52 L 48 L Respiratory Rate 16 16 15 Blood Pressure 120/76 104/66 104/68 Pulse Oximetry 100 97 97 Oxygen Delivery Method Room Air Oxygen Flow Rate 0 Narrative Exam Narrative: General-adult female no acute distress, well nourished HEENT-moist mucous membranes, no scleral icterus Neck-supple with full range of motion, no lymphadenopathy Chest- no labored respirations, clear to auscultation bilaterally Cardiac-regular rate and rhythm Abdomen-Appropriately tender, incisions clean dry intact. Extremities-no edema, warm well perfused Neurological-alert and oriented x 3. No focal deficits Skin-normal temperature and turgor, no rashes or ulcers Objective Labs Result Diagrams: 11/10/18 18:10 11/10/18 18:10 Labs: Laboratory Results - last 24 hr 11/10/18 11/10/18 11/10/18 18:10 18:10 18:10 WBC 9.8 RBC 4.82 Hgb 14.0 Hct 40.2 MCV 83.5 MCH 29.1 MCHC 34.8 RDW 12.8 Plt Count 255 Neut % (Auto) 74.4 Lymph % (Auto) 18.5 L [place] % (Auto) 5.1 Eos % (Auto) 1.0 L Baso % (Auto) 1.0 Neut # (Auto) 7300 H Lymph # (Auto) 1800 [place] # (Auto) 500 Eos # (Auto) 100 Baso # (Auto) 100 PT 11.2 INR 1.0 APTT 33 D Sodium 139 Potassium 3.7 Chloride 103 Carbon Dioxide 26 BUN 15 Creatinine 0.60 Estimated GFR > 60.0 BUN/Creatinine Ratio 25.0 H Glucose 98 Calcium 9.8 Magnesium 1.9 Total Bilirubin 0.5 AST 19 ALT 21 Alkaline Phosphatase 47 Total Creatine Kinase 45 CK-MB (CK-2) TNP CK-MB (CK-2) Rel Index TNP Troponin I < 0.012 Total Protein 7.8 Albumin 4.8 Globulin 3.0 Albumin/Globulin Ratio 1.6 Lipase 176 Urine RBC Urine WBC Ur Squamous Epith Cells Amorphous Sediment Urine Bacteria Ur Culture Indicated? 11/10/18 19:05 WBC RBC Hgb Hct MCV MCH MCHC RDW Plt Count Neut % (Auto) Lymph % (Auto) [place] % (Auto) Eos % (Auto) Baso % (Auto) Neut # (Auto) Lymph # (Auto) [place] # (Auto) Eos # (Auto) Baso # (Auto) PT INR APTT Sodium Potassium Chloride Carbon Dioxide BUN Creatinine Estimated GFR BUN/Creatinine Ratio Glucose Calcium Magnesium Total Bilirubin AST ALT Alkaline Phosphatase Total Creatine Kinase CK-MB (CK-2) CK-MB (CK-2) Rel Index Troponin I Total Protein Albumin Globulin Albumin/Globulin Ratio Lipase Urine RBC None seen Urine WBC 5-10/hpf H Ur Squamous Epith Cells 10-30 /hpf H Amorphous Sediment 2+ Urine Bacteria Many (>30) H Ur Culture Indicated? Cult not indicated Discharge Plan Discharge Plan Patient Disposition: Home Discharge Med Rec/Prescriptions Prescriptions: New oxycodone 5 mg capsule 5 mg PO Q4-6H PRN (Reason: pain) Qty: 30 RF: 0 acetaminophen [Tylenol] 325 mg capsule 650 mg PO Q6H PRN (Reason: pain, moderate) Qty: 60 RF: 0 Continued diltiazem HCl 120 mg Capsule,Extended Release 24 Hr 120 mg PO DAILY RF: 0 metoprolol tartrate 25 mg Tablet 25 mg PO DAILY PRN (Reason: as directed) RF: 0 ondansetron 4 mg tablet,disintegrating 4 mg PO DAILY PRN (Reason: nausea and vomiting) Qty: 8 RF: 0 Follow up/Referrals: Rogers Lugo MD [Physician] - Provider Discharge Instructions Diet: Low-fat Activity: No driving while on narcotics. No lifting >20 lbs for 4 weeks. Skin/Wound/Dressing Care Report to your healthcare provider any signs of infection, such as:: chills, fever, increased pain, unusual drainage and unusual redness Visit Report/Discharge Packet Instructions: DI for Cholecystectomy Quality VTE Deep Vein Thrombosis/Pulmonary Embolism Present on Admission: No
[2018-11-11] MEDS: ACETAMINOPHEN 325 MG TABLET 650 MG PO ×3 (08:53→22:07)
[2018-11-11] MEDS: ONDANSETRON 4 MG ODT PO (09:39)
[2018-11-11] MEDS: OXYCODONE IR 5 MG TABLET 10 MG PO ×2 (11:38→16:29)
--- NOTE | 2018-11-11 16:03 | CM.DANOTE ---
DCP: assessment: case received, EMR reviewed. Discussed in Team Rounds. A d/c to home setting was noted. GUSTAVO Mathews stated that Dr. Lugo had stated to her the d/c was contingent upon pt showing adaquate pain management and ability to tolerate a diet. She was in process of alerting to pt's increased pain, nausea and overall distress. Noted this afternoon that Dr. Lugo was back and had just checked in again with pt. Conferred with patel CHEN and then met with pt. Introduced self and role. Pt was found lying in bed, looking pale. She is a 33 year old female who admitted last night to care of General Surgeon: Dr. Lugo.' She was taken to surgery for a lap maria de jesus after dx of acute cholecystitis. She has chronic pain at baseline so this has made her recovery time a bit slower per the RN team caring for pt today. Payer: for [facility] PCP: [facility] Pt confirms that Dr. Lugo told her she could go later tonight if she felt ready, otherwise he would check on her tomorrow and would likely d/c then. Pt says she will see how she feels but at this point thinks it might be best to stay overnight. Her mother will be picking her up at d/c. P: home with clinic followup when stable for same.
--- NOTE | 2018-11-11 17:31 | PC.NURSE ---
1630- Pt lying in bed, rates pain 5/10 to ABD, medicated with oxycodone 10mg and tylenol 650mg, effective. Reports doesn't want to go home tonight. Cancelled DC order. ABD with 4 lap sites on to umbilicus, others RUQ, well approximated with dermabond, CDI. 98%RA, LS clear, BT+, denies nausea, PP+ bradycardic, tele- SB 42 @ 1600. BRP to void with SBA. tolerating reg diet. bed alarm mercerizing range controller light in reach.
[2018-11-12] VITALS: BP 117/65; PULSE 40; RESP 16; TEMP 36.7; O2SAT 98
[2018-11-12] MEDS: KETOROLAC 30 MG/ML VIAL IV ×2 (00:19→05:49)
[2018-11-12] MEDS: SODIUM CHLORIDE 0.9% FLUSH 10 ML IV ×2 (00:20→05:50)
[2018-11-12] MEDS: ACETAMINOPHEN 325 MG TABLET 650 MG PO ×3 (01:07→09:39)
[2018-11-12] MEDS: OXYCODONE IR 5 MG TABLET 10 MG PO (05:58)
[2018-11-12 06:07] VITALS: BP 104/52; PULSE 46; RESP 15; TEMP 36.5; O2SAT 98
[2018-11-12 08:00] VITALS: BP 106/60; PULSE 46; RESP 18; TEMP 36.5; O2SAT 98
--- NOTE | 2018-11-12 08:25 | PM.PNPO.1 ---
Subjective Subjective Date Patient Seen: 11/12/18 Time Patient Seen: 08:25 Interval history: No acute overnight events. And pain significantly improved from yesterday. Tolerating regular diet without nausea or vomiting. Ambulatory. Exam Vital Signs (past 8 hours): - 11/12/18 06:07 Temperature 97.7 F Pulse Rate 46 L Respiratory Rate 15 Blood Pressure 104/52 L Pulse Oximetry 98 Oxygen Delivery Method Room Air Oxygen Flow Rate 0 Narrative Exam Narrative: General adult female in no acute distress alert and oriented Chest nonlabored respirations. No audible wheezes Abdomen is soft, appropriately tender, incisions clean dry intact. Objective Labs Result Diagrams: 11/10/18 18:10 11/10/18 18:10 Assessment & Plan Post-op Postoperative Procedures: Procedures Operation Date: 11/10/18 22:35 Actual Procedures Side Surgeon p Laparoscopic Cholecystectomy Not Applicable Rogers Lugo MD Postoperative plan narrative: 33-year-old female postoperative day 2 status post laparoscopic cholecystectomy for acute cholecystitis doing well. pain is better controlled today with oral medication. Stable for discharge home. Discharge instructions provided. Time Spent With Patient Time with patient: less than 15 minutes Quality VTE Deep Vein Thrombosis/Pulmonary Embolism Present on Admission: No
[2018-11-12] MEDS: dilTIAZem CD 120 MG CAP PO (10:17)
--- NOTE | 2018-12-10 14:42 | PC.NURSE ---
late entry: NS stop time 11/11 1099
== END 2018-11-12 11:00 | disposition home or self-care (01) ==
LOC: ED 18:37 → AC 20:29
PROVIDERS: Emergency Medicine; Admitting Provider Surgery; Emergency Provider Emergency Medicine; Visit Provider Surgery
PROC: 0FT44ZZ Resection of Gallbladder, Percutaneous Endoscopic Approach (ICD-10-PCS; CPT 47562; principal; 2018-11-10 22:35)
DX: K80.00 Calculus of gallbladder with acute cholecystitis without obstruction (principal); R07.9 Chest pain, unspecified; R10.9 Unspecified abdominal pain
CPT/HCPCS: 47562; 36415; 36591; 71045; 76705; 80053; 81003; 81015; 82550; 83690; 83735; 84484; 85025; 85610; 85730; 93005; 96365; 96375; 96376; 99220; 99285; G0378; C9113; J1100; J1170; J1885; J2405; J2543; J2704; J3010

== ENCOUNTER 2024-04-22 17:10 | Emergency (ER) | payer OTHER, SELFPAY ==
[2018-11-10 21:11] VITALS: BMI 21.4
[2024-04-22] VITALS (9 sets, daily range): BP systolic 135–166; BP diastolic 76–79; PULSE 44–72; RESP 14–16; TEMP 36.5; O2SAT 99–100; BMI 27.4
--- NOTE | 2024-04-22 18:04 | PC.NURSE ---
Pt sitting back in [facility]. Appears in NAD. Reports feeling nauseated and vertigo at times. Waiting for MD orders.
[2024-04-22 19:50] LABS: Bacteria Urine Few (2-10); RBC Urine None Seen (0-5/HPF); Squamous Epithelial Cell Urine 0-1 /HPF (0-5/HPF); Urine Volume 10mL (spun); WBC Urine 1-5/HPF (0-5/HPF)
--- NOTE | 2024-04-22 20:57 | PC.NURSE ---
Pt requesting tylenol for pain. Dr Lindsay consulted. wants to wait until he sees pt before ordering anything for pain.
[2024-04-22] MEDS: TRAMADOL 50 MG TABLET PO (22:18)
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
[2024-04-23] MEDS: methocarbamoL 500 MG TABLET PO (00:18)
[2024-04-23] MEDS: TRAMADOL 50 MG PREPACK 1 BOTTLE MISC (00:29)
[2024-04-23 00:31] VITALS: BP 134/74; PULSE 51; RESP 16; O2SAT 100
== END 2024-04-23 00:32 | disposition home or self-care (01) ==
PROVIDERS: Emergency Provider Emergency Medicine; PCP Family Medicine
DX: G44.309 Post-traumatic headache, unspecified, not intractable (principal); F07.81 Postconcussional syndrome; M54.2 Cervicalgia; M54.9 Dorsalgia, unspecified; R42 Dizziness and giddiness
CPT/HCPCS: 81003; 81015; 87086; 99283

== ENCOUNTER → 2024-05-21 16:52 | Outpatient (CLI) | payer OTHER, SELFPAY ==
[2018-11-10 21:11] VITALS: BMI 21.4
--- NOTE | 2024-05-21 16:53 | DI.MRI.S_ITS ---
PROCEDURE: MR CERVICAL SPINE WO CON INDICATIONS: Radiculopathy, post concussion syndrome TECHNIQUE: Noncontrast sagittal T1 spin echo and T2 fast spin echo, sagittal STIR, foraminal oblique sagittal T2 fast spin echo, and axial gradient echo or T2 fast spin echo through the cervical spine. COMPARISON: None. FINDINGS: Image quality: Excellent. Alignment and Curvature: There is normal bony alignment. Mild cervical straightening. Bone Marrow: Marrow demonstrates normal overall signal. Spinal Cord: Visualized spinal cord has normal size and signal. No cerebellar tonsillar herniation. Paraspinous Soft Tissues: No paravertebral masses. Prevertebral soft tissues are normal in thickness. C2-C3: No disc bulge, spinal stenosis or foraminal narrowing. C3-C4: No disc bulge, spinal stenosis or foraminal narrowing. C4-C5: Trace disc bulge without spinal stenosis or foraminal narrowing. C5-C6: No disc bulge, spinal stenosis or foraminal narrowing. C6-C7: Mild disc bulge with superimposed posterior central protrusion with possible extruded fragment. It measures 4 mm. There is no compromise of the lateral recesses. Minimal bilateral foraminal narrowing. C7-T1: No disc bulge or spinal stenosis. Minimal bilateral foraminal narrowing. IMPRESSION: Early degenerative changes with protrusion and suspected small extrusion at C6-7 as above. Dictated by: Yuki Villeda M.D. on 05/22/2024 at 16:52 Approved by: Yuki Villeda M.D. on 05/22/2024 at 16:55
--- NOTE | 2024-05-21 16:55 | DI.MRI.S_ITS ---
PROCEDURE: MR HEAD/BRAIN WO CON INDICATIONS: Frequent headaches, post concussion syndrome TECHNIQUE: Noncontrast axial T1 spin echo, axial T2 fast spin echo, sagittal and axial FLAIR, coronal T2 fast spin echo, axial gradient echo, axial diffusion and ADC through the brain. COMPARISON: None. FINDINGS: Image quality: Excellent. CSF Spaces: Basal cisterns are patent. No extra-axial fluid collections. Ventricles are normal in size and shape. Brain: No intracranial masses or hemorrhage. Ceron/white matter interface is normal. Brainstem appears normal. Diffusion-weighted images demonstrate no acute infarct. No chronic ischemic insults. Normal intravascular flow voids are present. Skull and face: Calvarium has normal marrow signal. Orbits appear normal. Sinuses: Sinuses and mastoids are clear. IMPRESSION: 1. No acute intracranial process. Dictated by: Yuki Villeda M.D. on 05/22/2024 at 16:51 Approved by: Yuki Villdea M.D. on 05/22/2024 at 16:52
== END ==
LOC: MRI 16:52
PROVIDERS: PCP Family Medicine; Referring Provider Family Medicine; Visit Provider Family Medicine
DX: M54.10 Radiculopathy, site unspecified (principal); F07.81 Postconcussional syndrome; R51.9 Headache, unspecified; M50.20 Other cervical disc displacement, unspecified cervical region; M50.30 Other cervical disc degeneration, unspecified cervical region
CPT/HCPCS: 70551; 72141

== ENCOUNTER → 2024-11-20 14:20 | Outpatient (CLI) | payer OTHER, SELFPAY ==
[2018-11-10 21:11] VITALS: BMI 21.4
[2024-11-20 15:46] LABS: Add Manual Diff / Slide Review NO; Hematocrit 38.4 % (36-46); Hemoglobin 13.3 g/dL (12.0-16.0); Lymphocytes Absolute Auto 1200 /uL (1100-4500); Mean Corpuscular HGB Conc 34.5 % (30-36); Mean Corpuscular Hemoglobin 28.8 PG (26-34); Mean Corpuscular Volume 83.3 fL (80-100); Platelet Count 211 X10^3/uL (150-400)
[2024-11-20 16:11] LABS: Alanine Aminotransferase 70 IU/L (<35); Albumin 4.8 g/dL (3.5-5.0); Albumin Globulin Ratio 1.8 (1.0-2.8); Alkaline Phosphatase 50 U/L (38-126); Blood Urea Nitrogen 14 mg/dL (7-17); Calcium 9.3 mg/dL (8.4-10.2); Carbon Dioxide 24 mmol/L (22-32); Chloride 104 mmol/L (98-107); Cholesterol 155 mg/dL (140-199); Estimated Glomerular Filt Rate > 60 mL/min (>60); Globulin 2.6 g/dL (1.7-4.1); Glucose 91 mg/dL (70-99); HDL Cholesterol 43 mg/dL (40-60); HEMOLYSIS < 15 (0-50); Potassium 3.9 mmol/L (3.4-5.1); Sodium 139 mmol/L (137-145); Total Protein 7.4 g/dL (6.3-8.2); Triglycerides 94 mg/dL (35-150)
[2024-11-20 16:22] LABS: Vitamin D 25 Hydroxy (D3) 30.5 ng/mL (30.0-100.0)
[2024-11-20 16:37] LABS: TSH w/ Reflex to FT4 1.57 uIU/mL (0.47-4.68)
[2024-11-20 16:46] LABS: Ferritin 40 ng/mL (6-137)
== END ==
PROVIDERS: PCP Family Medicine; Referring Provider Family Medicine; Visit Provider Family Medicine
DX: I49.9 Cardiac arrhythmia, unspecified (principal); M54.10 Radiculopathy, site unspecified; R51.9 Headache, unspecified; K81.9 Cholecystitis, unspecified; Z13.6 Encounter for screening for cardiovascular disorders; R53.83 Other fatigue; L65.9 Nonscarring hair loss, unspecified; R19.7 Diarrhea, unspecified
CPT/HCPCS: 36415; 80053; 80061; 82306; 82728; 84443; 85025

== ENCOUNTER → 2024-11-27 06:49 | Outpatient (CLI) | payer OTHER, SELFPAY ==
[2018-11-10 21:11] VITALS: BMI 21.4
--- NOTE | 2024-11-27 06:50 | DI.CT.S_ITS ---
PROCEDURE: CT ABDOMEN PELVIS W CON INDICATIONS: left upper quadrant pain TECHNIQUE: After the administration of intravenous contrast, axial sections acquired from the lung bases to the pubic symphysis. Coronal and sagittal reformats were performed. For radiation dose reduction, the following was used: automated exposure control, adjustment of mA and/or kV according to patient size. COMPARISON: None. FINDINGS: Image quality: Diagnostic. Lower Chest: Bilateral breast implants. ABDOMEN: Liver: No solid mass. Gallbladder: Absent. Biliary ducts: No biliary dilation. Pancreas: No ductal dilation. Spleen: Size is within normal limits. Adrenal Glands: No adrenal nodules. Kidneys and Ureters: No hydronephrosis. No solid mass. No complex renal cystic lesion which requires follow up. Stomach and Bowel: Normal colonic caliber, without significant wall thickening. No significant diverticular disease. Normal appendix. Peritoneum: No abnormal intraperitoneal fluid. No free air. Ventral Wall: Small umbilical hernia containing fat. Abdominal Nodes: No retroperitoneal or mesenteric adenopathy by size criteria. Vessels: Aorta and inferior vena cava are normal in size. PELVIS: Pelvic Organs: Unremarkable. Bladder: No bladder wall thickening, accounting for underdistention. Pelvic Nodes: No enlarged lymph nodes. Miscellaneous: No inguinal hernias are seen. Bones: No aggressive osseous abnormality. IMPRESSION: No findings to explain the patient's left upper quadrant pain. No significant diverticular disease. No nephrolithiasis. Dictated by: Lisandro Diamond M.D. on 11/27/2024 at 9:16 Approved by: Lisandro Diamond M.D. on 11/27/2024 at 9:22
== END ==
LOC: CT 06:50
PROVIDERS: PCP Family Medicine; Referring Provider Family Medicine; Visit Provider Family Medicine
DX: K42.9 Umbilical hernia without obstruction or gangrene (principal); R10.12 Left upper quadrant pain
CPT/HCPCS: 74177; Q9967

== ENCOUNTER 2025-01-12 07:59 | Day surgery (SDC) | payer OTHER, SELFPAY ==
[2018-11-10 21:11] VITALS: BMI 21.4
[2025-01-12] VITALS (7 sets, daily range): BP systolic 99–145; BP diastolic 57–69; PULSE 46–74; RESP 14–16; TEMP 36.2–36.3; O2SAT 97–99
--- NOTE | 2025-01-12 | PATH_ITS ---
[facility] Accession Number: [id number] No. of containers..09 Tissue . 01 Material submitted: . PART A: duodenum - DUODENUM PART B: stomach - ANTRUM PART C: esophagus, E-G Junction - GE JUNCTION PART D: esophagus - DISTAL ESOPHAGUS PART E: esophagus - MID ESOPHAGUS PART F: colon - COLON ASCENDING PART G: colon - COLON, TRANSVERSE PART H: colon - COLON, DESCENDING PART I: rectum - RECTUM . 01 Diagnosis: A. DUODENUM, BIOPSY: Duodenal mucosa with no diagnostic abnormality. Negative for active inflammation, features of sprue, dysplasia, or malignancy. . B. GASTRIC ANTRUM, BIOPSY: Gastric antral mucosa with mild chronic inflammation and intestinal metaplasia. Intestinal metaplasia present in two of three biopsy fragments. Negative for Helicobacter organisms by immunohistochemistry. Negative for dysplasia or malignancy. . C. GASTROESOPHAGEAL JUNCTION, BIOPSY: Squamocolumnar junctional mucosa with mild chronic inflammation. Negative for specialized intestinal metaplasia, dysplasia, or malignancy. . D. DISTAL ESOPHAGUS, BIOPSY: Squamous epithelium with no diagnostic abnormality. Intraepithelial eosinophils are not increased. Negative for dysplasia and malignancy. . E. MID ESOPHAGUS, BIOPSY: Squamous epithelium with no diagnostic abnormality. Intraepithelial eosinophils are not increased. Negative for dysplasia and malignancy. . F. ASCENDING COLON, BIOPSY: Colonic mucosa with no diagnostic abnormality. Negative for active, chronic, and microscopic colitis. Negative for dysplasia and malignancy. . G. TRANSVERSE COLON, BIOPSY: Colonic mucosa with no diagnostic abnormality. Negative for active, chronic, and microscopic colitis. Negative for dysplasia and malignancy. . H. DESCENDING COLON, BIOPSY: Colonic mucosa with no diagnostic abnormality. Negative for active, chronic, and microscopic colitis. Negative for dysplasia and malignancy. . I. RECTUM, BIOPSY: Colonic mucosa with no diagnostic abnormality. Negative for active, chronic, and microscopic colitis. Negative for dysplasia and malignancy. [facility] 01/25/2025 1337 Local . 01 Electronically signed: . David Montelongo MD, PhD, Pathologist NPI- [id number] . 01 Gross description: . Received are nine formalin-filled containers each labeled with the patient's name. . A. In a container labeled duodenum, are two fragments of camejo, soft tissue which range in size from 0.1 x 0.1 x 0.1 cm to 0l.2 x 0.2 x 0.2 cm. All fragments are totally submitted in cassette A1. B. In a container labeled antrum, are three fragments of camejo, soft tissue which range in size from less than 0.1 cm to 0.3 x 0.3 x 0.2 cm. All fragments are totally submitted in cassette B1. C. In a container labeled GE junction, are three fragments of camejo, soft tissue which range in size from less than 0.1 cm to 0.3 x 0.2 x 0.2 cm. All fragments are totally submitted in cassette C1. D. In a container labeled dist. esoph., are three fragments of camejo, soft tissue which range in size from less than 0.1 cm to 0.2 x 0.1 x 0.1 cm. All fragments are totally submitted in cassette D1. E. In a container labeled mid esophagus, are two fragments of caemjo, soft tissue which range in size from less than 0.1 cm to 0.3 x 0.3 x 0.2 cm. All fragments are totally submitted in cassette E1. F. In a container labeled ascending colon, are two fragments of camejo, soft tissue which range in size from 0.2 x 0.1 x 0.1 cm to 0.4 x 0.3 x 0.2 cm. All fragments are totally submitted in cassette F1. G. In a container labeled transverse colon. are two fragments of camejo, soft tissue which range in size from less than 0.1 cm to 0.3 x 0.2 x 0.2 cm. All fragments are totally submitted in cassette G1. H. In a container labeled descending colon, are two fragments of camejo, soft tissue which range in size from 0.2 x 0.2 x 0.2 cm. to 0.3 x 0.3 x 0.2 cm. All fragments are totally submitted in cassette H1. I. In a container labeled rectum, is one fragment of camejo, soft tissue which measures 0.3 x 0.3 x 0.2 cm. The specimen is totally submitted in cassette I1. (DC:[id number]) /ANDRES 01/19/2025 0008 Local . 01 Microscopic: . B. An immunohistochemical stain was performed to evaluate for Helicobacter organisms and is negative. The control stain showed appropriate reactivity. . * This test was developed and the performance characteristics were validated by [facility]. It has not been cleared or approved by the U.S. Food and Drug Administration. . 01 Pathologist provided ICD-10: K29.70, K31.A0, K20.80, R19.7 . 01 CPT . 123085, 586155, 161983, 667042, 323877, 774965, 475124, 166905, 384977, S95013 Specimen Comment: A courtesy copy of this report has been sent to [phone] Performed at: [address] [id number] MD Rodger Miller MD Phone: [phone]
[2025-01-12] MEDS: LACTATED RINGERS 1,000 ML 42 ML IV (08:34)
--- NOTE | 2025-01-12 09:13 | PM.PREOP ---
Pre-operative Note COVID-19 COVID-19 status: Not tested Interval Note History & Physical reviewed/Exam performed by Physician: Yes Changes to H&P: No ASA Class (for procedural sedation): II
--- NOTE | 2025-01-12 10:03 | P.OP.EGD&C_ITS ---
Operative Date/Time/Diagnoses Date of procedure: 01/12/25 Time of procedure: 10:04 Pre-op diagnosis: Diarrhea and rectal bleeding Post-op diagnosis: same Procedure & Clinicians Study performed: EGD and colonoscopy Same procedure(s) as scheduled: Yes Surgeon: Roderick Franco Anesthesia Type: MAC +/- Procedure Notes Procedure in detail: Surgeon: Roderick Franco MD Anesthesia: Guillermina Deluca CONTINUOUS IMPROVEMENT MANAGER Procedure in detail: A timeout was performed. A bite blocked was placed and monitors were attached to the patient. The patient was positioned in the left lateral decubitus position. Sedation was administered. Once the patient was sedated the endoscope was inserted through the bite block and passed through the esophagus and stomach and into the duodenum. No abnormalities were seen. We performed random biopsies of the duodenal mucosa with cold forceps. We then withdrew the scope into the stomach. No abnormalities were seen. We performed random biopsies of the antral mucosa with cold forceps. The endoscope was retroflexed and no hiatal hernia was seen. The endoscope was straightned and withdrawn into the esophagus. There were some salmon-colored patches of mucosa at the GE junction and biopsies were taken with the cold forceps from the GE junction. The rest of the esophagus appeared normal. We performed random biopsies of the distal and mid esophagus with cold forceps to rule out eosinophilic esophagitis. EGD findings: [place]-colored patches of mucosa at the GE junction Next we repositioned the patient for a colonoscopy. A digital rectal exam was performed and was normal. The colonoscope was inserted and advanced to the cecum. The appendiceal orifice was identified and photographed. The scope was slowly withdrawn over greater than 6 minutes. No polyps were found. Random biopsies were taken from the right colon, transverse colon, left colon and rectum with cold forceps. The scope was retroflexed in the rectum and no other abnormalities were seen. Colonoscopy findings: Grossly normal colon Scope withdrawal time: 13 minutes Sedation minutes: 30 minutes Estimated Blood Loss: 9 Complications: none Post-procedure Disposition: PACU
== END 2025-01-12 11:05 | disposition home or self-care (01) ==
PROVIDERS: PCP Family Medicine; Referring Provider Surgery; Visit Provider Surgery
PROC: 0DJ08ZZ Inspection of Upper Intestinal Tract, Via Natural or Artificial Opening Endoscopic (ICD-10-PCS; CPT 43239; principal; 2025-01-12 09:30)
PROC: 0DJD8ZZ Inspection of Lower Intestinal Tract, Via Natural or Artificial Opening Endoscopic (ICD-10-PCS; CPT 45378; 2025-01-12 09:30)
DX: K62.5 Hemorrhage of anus and rectum (principal); R19.7 Diarrhea, unspecified; K29.50 Unspecified chronic gastritis without bleeding; K31.A0 Gastric intestinal metaplasia, unspecified; K20.80 Other esophagitis without bleeding; Z87.891 Personal history of nicotine dependence
CPT/HCPCS: 43239; 45378; J2704; J7120